=== PATIENT | female | born 1975 | race Caucasian/White ===

== ENCOUNTER 2017-01-02 15:16 | Inpatient (IN) | payer OTHER ==
[~2017-01-02] VITALS: Ht 152.4 cm; Wt 83.0 kg
[~2017-01-02 15:16] MED LIST: IBUP-103 PO; LEVO50TA6 PO; MULT-513 PO
[2017-01-02] MEDS ORDERED: MIDAZOLAM HCL 1 MG/ML 2ML VIAL ONE (15:19)
[2017-01-02] MEDS ORDERED: FENTANYL CITRATE INJ 50 MCG/1 ML 2 ML VIAL ONE (15:19)
[2017-01-02] MEDS ORDERED: LACTATED RINGER'S 1000ML 1,000 ML IV SCH ×2 (15:40→17:00)
[2017-01-02] MEDS ORDERED: CITRIC ACID/SODIUM CITRATE 15 ML UDC PO ONE (15:45)
[2017-01-02] MEDS ORDERED: CEFOXITIN IV 2,000 MG in DEXTROSE 5% 50ML 50 ML IV SCH (15:46)
[2017-01-02] MEDS ORDERED: CITRIC ACID/SODIUM CITRATE 15 ML UDC ONE ×2 (15:53→17:07)
--- NOTE | 2017-01-02 15:56 | History & Physical Bridge Note ---
H&P Re-Evaluation Bridge Note: I have examined the patient, reviewed the History & Physical and in the interval since the performance of the History & Physical I have noted the following changes of clinical significance: No changes noted Dictated H&P #[id number]
[2017-01-02] MEDS ORDERED: MISOPROSTOL 200 MCG TAB PV STA (16:13)
[2017-01-02 16:19] LABS: INR 0.9 (0.9-1.1); PROTHROMBIN TIME (PATIENT) 9.8 SECONDS (9.0-12.0)
--- NOTE | 2017-01-02 16:29 | HISTORY & PHYSICAL EXAMINATION ---
DATE OF ADMISSION: 01/02/2017 HISTORY OF PRESENT ILLNESS: The patient is a 41-year-old who presented to the [facility] today for the first time with positive test. Ultrasound done showed that the patient is 36 weeks and 1 day . Estimated weight is 2730 grams. It was also noted that the patient had complete placenta previa. The patient reported having severe vaginal bleeding yesterday as reported by patient. It was "enough to fill a bucket." Today in the office she has no vaginal bleeding. The patient is sent to labor and delivery for section. On arrival to labor and delivery, she has no shortness of breath, no chills, no fever. There is no vaginal bleeding. heart rate is documented as category I. COURSE: As stated above none. LABS: None. PAST MEDICAL HISTORY: The patient has history of asthma. PAST SURGICAL HISTORY: The patient has a history of appendectomy. [facility] HISTORY: The patient has had 2 vaginal deliveries at term without problems. ALLERGIES: THE PATIENT IS ALLERGIC TO PERCOCET. SOCIAL HISTORY: The patient is a smoker. Denies drug or alcohol use. PHYSICAL EXAMINATION: GENERAL: Well-developed, well-nourished white female in no acute distress. HEART: S1, S2, regular rhythm and rate. LUNGS: Clear to auscultation bilaterally. ABDOMEN: Gravid. Ultrasound shows intrauterine at 36 weeks and 1 day, transverse lie, complete placenta previa and polyhydramnios. EXTREMITIES: No cyanosis, clubbing or edema. PELVIC: Deferred. ASSESSMENT AND PLAN: A 41-year-old at 36 weeks and 1 day complete placenta previa, no care. The patient has experienced massive bleeding yesterday. Decision therefore is to perform a section. Consent is signed. We discussed risks of bleeding including possible hysterectomy because of the placenta previa. Consent is signed. We discussed other risks including damage to internal organs such as the bowel, the bladder, the ureter. We also discussed possible blood transfusion, and infection. The patient has agreed to all the above and consent signed.
[2017-01-02 16:33] LABS: HEMATOCRIT 33.3 % (37-47); MEAN CELL VOLUME 90.7 fL (80-100); MEAN CORPUSCULAR HEMOGLOBIN 31.6 pg (25-34); MEAN PLATELET VOLUME 10.4 fL (7.4-10.4); PLATELET COUNT 247 K/uL (130-400); RED BLOOD COUNT 3.67 M/uL (4.2-5.4)
[2017-01-02 16:35] LABS: ALT/SGPT 22 U/L (12-78); AST/SGOT 13 U/L (15-37); BLOOD UREA NITROGEN 5 mg/dl (7-18); BUN/CREATININE RATIO 9.9 (10-20); CARBON DIOXIDE 22 mmol/L (21-32); CHLORIDE 107 mmol/L (98-107); CREATININE 0.51 mg/dl (0.60-1.20); GLUCOSE 91 mg/dl (70-99); POTASSIUM 3.6 mmol/L (3.5-5.1); SODIUM 138 mmol/L (136-145)
[2017-01-02 16:37] LABS: MEAN CORPUSCULAR HGB CONC 34.8 g/dl (32-36)
[2017-01-02 16:38] LABS: ALB/GLOB RATIO 0.6 (0.9-2); ALKALINE PHOSPHATASE 141 U/L (45-117)
[2017-01-02 17:02] LABS: BENZODIAZEPINE, URINE NEG (NEG); COCAINE,URINE NEG (NEG); PHENCYCLIDINE, URINE NEG (NEG)
[2017-01-02] MEDS ORDERED: OXYTOCIN INJ 10 UNITS/ML VIAL ONE ×3 (17:16→18:20)
[2017-01-02] MEDS ORDERED: MoRPHine SULFATE PF 1 MG/ML 10 ML AMP/VIAL ONE (17:22)
[2017-01-02 17:26] LABS: HEPATITIS B AB NEG
[2017-01-02] MEDS ORDERED: PHENYLEPHRINE HCL INJ 10 MG/ML VIAL ONE (17:48)
[2017-01-02] MEDS ORDERED: KETAMINE HCL INJ 50 MG/ML 10 ML VIAL ONE (18:04)
[2017-01-02] MEDS ORDERED: OXYTOCIN INJ 10 UNITS/ML VIAL INJ ONE (18:21)
[2017-01-02] MEDS ORDERED: SODIUM CHLORIDE 0.9% 1000ML 1,000 ML IV PRN (18:32)
[2017-01-02] MEDS ORDERED: NALOXONE HCL INJ 0.08 MG in SYRINGE 1.8 ML IV PRN (18:32)
[2017-01-02] MEDS ORDERED: LACTATED RINGER'S 1000ML 500 ML IV PRN (18:32)
[2017-01-02] MEDS ORDERED: NALOXONE HCL INJ 1 MG in SODIUM CHLORIDE 0.9% 1000ML 1,000 ML IV PRN (18:32)
[2017-01-02] MEDS ORDERED: MoRPHine SULFATE PF 1 MG/ML 10 ML AMP/VIAL EPI PRN (18:45)
[2017-01-02] MEDS ORDERED: NALBUPHINE HCL INJ 10 MG/ML AMP IV PRN (18:45)
[2017-01-02] MEDS ORDERED: MoRPHine SULFATE 2 MG/ML CARP IV PRN (18:45)
[2017-01-02] MEDS ORDERED: NO NARCOTICS OR SEDATIVES SCH (18:45)
[2017-01-02] MEDS ORDERED: EpHEDrine SULFATE INJ 50 MG/ML AMP IV PRN (18:45)
[2017-01-02] MEDS ORDERED: DiphenhydrAMINE HCL 50 MG/ML VIAL IV PRN (18:45)
[2017-01-02] MEDS ORDERED: MEPERIDINE HCL 25 MG/ML CARP IV PRN (18:45)
[2017-01-02] MEDS ORDERED: NALOXONE HCL 0.4 MG/1 ML VIAL/CARP IV PRN (18:45)
[2017-01-02] MEDS ORDERED: ONDANSETRON INJ 2 MG/ML 2 ML VIAL ONE (18:58)
--- NOTE | 2017-01-02 19:14 | [facility] Operative Report ---
Operative Report Operative Date Jan 02, 2017. Pre-Operative Diagnosis Complete placenta previa with bleeding Post-Operative Diagnosis same Procedure(s) Performed section Surgeon Dr. Ellis Mimeograph Operator Surgeon(s) Dr. Yu Estimated Blood Loss 600ml Findings dictated Fluids 1300 Specimens A. Placenta - taken with L&D Staff Drains atkinson Anesthesia spinal Complication(s) None Disposition Recovery Room / PACU I attest to the content of the Intraoperative Record and any orders documented therein. Any exceptions are noted below.
[2017-01-02] MEDS ORDERED: HYDROCORTISONE ACETATE 25 MG SUPP PR PRN (19:15)
[2017-01-02] MEDS ORDERED: MAGNESIUM HYDROXIDE SUSP 30 ML UDC PO PRN (19:15)
[2017-01-02] MEDS ORDERED: SUPERCREAM 0.870 % 15GM JAR EXT PRN (19:15)
[2017-01-02] MEDS ORDERED: LANOLIN OINT EXT PRN ×2 (19:15)
[2017-01-02] MEDS ORDERED: SENNA 8.6 MG TAB PO PRN (19:15)
[2017-01-02] MEDS ORDERED: BENZOCAINE 20% AER SPR 82.5 GM CAN EXT PRN (19:15)
[2017-01-02] MEDS ORDERED: DiphenhydrAMINE HCL 50 MG/ML VIAL ONE (19:17)
--- NOTE | 2017-01-02 19:26 | Anesthesiology Progress Note ---
Anesthesia Post Op Note Date & Time Jan 02, 2017 at 19:25 Vital Signs Pain Intensity: 0 Vital Signs Past 12 Hours Date Time Temp Pulse Resp B/P Pulse Ox O2 Delivery O2 Flow Rate FiO2 01/02/17 19:15 79 16 140/74 100 Nasal Cannula 2 01/02/17 19:05 81 18 130/77 100 Nasal Cannula 2 01/02/17 18:57 36.6 93 16 122/71 100 Nasal Cannula 2 Notes Mental Status: alert / awake / arousable, participated in evaluation Pt Amnestic to Procedure: Yes Nausea / Vomiting: adequately controlled Pain: adequately controlled Airway Patency, RR, SpO2: stable & adequate BP & HR: stable & adequate Hydration State: stable & adequate Neuraxial Anesthesia: was administered, sensory block is resolving Anesthetic Complications: no major complications apparent
[2017-01-02 19:50] VITALS: BP 137/82; TEMP 37.5; O2SAT 99
[2017-01-02] MEDS: DOCUSATE SODIUM 100 MG CAP PO SCH ×2 (20:00→20:36)
[2017-01-02 20:20] VITALS: BP 122/78; PULSE 81; TEMP 37.1; O2SAT 96
[2017-01-02] MEDS: OXYTOCIN INJ 20 UNITS in LACTATED RINGER'S 1000ML 1,000 ML IV SCH (20:30)
[2017-01-02 20:50] VITALS: BP 120/76; PULSE 84; TEMP 37.1; O2SAT 96
[2017-01-02] MEDS: KETOROLAC TROMETHAMINE 30 MG/ML VIAL IV. PRN (21:04)
[2017-01-02] MEDS: ONDANSETRON INJ 2 MG/ML 2 ML VIAL IV PRN (21:04)
--- NOTE | 2017-01-02 21:07 | OPERATIVE REPORT ---
DATE OF OPERATION: 01/02/2017 INDICATION FOR SURGERY: This is a 41-year-old with no care who found out she was yesterday. She was seen in the office today and was found to be 36 weeks and 1 day gestation with complete placenta previa. She had reported severe bleeding 24 hours ago. Decision was therefore made to perform an urgent section. PREOPERATIVE DIAGNOSES: 1. Complete placenta previa with bleeding. 2. No care. POSTOPERATIVE DIAGNOSES: Same. PROCEDURE: section. SURGEON: Dr. Ellis. BROADCAST TRAFFIC COORDINATOR: Dr. Yu. ESTIMATED BLOOD LOSS: 600 mL. INTRAVENOUS FLUIDS: 1300 mL. URINE OUTPUT: 500 mL clear urine at the end of the procedure. SPECIMEN: Placenta. DRAINS: Pizarro catheter. ANESTHESIA: Spinal. COMPLICATIONS: None. DISPOSITION: Stable in recovery room. FINDINGS: Live male, weight is pending, Apgars 7 and 8. Infant was in breech presentation. Mid portion of the anterior uterus had 2 fibroids, measuring about 1 inch x 1 inch. The right ovary appeared grossly normal and there was a paratubal cyst on the right tube. The left ovary appeared grossly normal. Rest of the pelvic and abdominal exam is unremarkable. DESCRIPTION OF PROCEDURE: The patient was taken to the operating room where she was prepped and draped in normal sterile fashion after timeout was called. A Pfannenstiel incision was made and carried down to the fascia with a scalpel. Fascia was incised in the midline and extended laterally on both sides. The fascia was sharply dissected off the rectus abdominis muscle. Midline of the rectus abdominis muscle was identified and carefully . The peritoneum was identified and grabbed with 2 mosquito clamps and the abdomen entered sharply. Once inside the abdomen, the findings were as dictated above. An Hari retractor was placed in the abdomen for retraction. Transverse incision was made in the uterus and extended laterally on both sides. Infant was breech. The buttocks was delivered, followed by both legs, torso as well as both hands. Breech maneuvers were performed without difficulty. Infant was delivered and found to have a nuchal cord as well as a body cord. Cord was clamped and cut and handed over to the awaiting pediatric team. The placenta was manually removed without difficulty. Uterus was cleared of all clots and debris. The uterus was exteriorized. The uterus was closed in a locking fashion using 2-0 Vicryl. Uterus was closed in 2 layers. There was good hemostasis at end of the closure. The vesicouterine peritoneum was reapproximated with plain suture. Copious amount of irrigation was used to irrigate the abdomen at this point. Uterus was returned into the abdominal cavity. There was good hemostasis. Peritoneum was closed in a running fashion using plain suture. The fascia was closed in a running fashion using 0 Vicryl. More irrigation was used to irrigate the subQ space. The subQ space was reapproximated using plain suture and skin was closed with blaze. All instruments were removed from the abdomen including sponges, needles and retractors and accounted for x2. The patient is doing well and sent to recovery in stable condition. I attest to the content of the Intraoperative Record and any orders documented therein. Any exceptio ns are noted below.
[2017-01-02 21:50] VITALS: BP 112/64; PULSE 77; TEMP 37; O2SAT 96
[2017-01-02 22:50] VITALS: BP 114/70; PULSE 84; TEMP 37.1; O2SAT 97
[2017-01-02 23:50] VITALS: O2SAT 97
[2017-01-03] VITALS (14 sets, daily range): BP systolic 103–129; BP diastolic 68–82; PULSE 78–92; TEMP 36.8–37.1; O2SAT 94–99
[2017-01-03] MEDS ORDERED: LACTATED RINGER'S 1000ML 1,000 ML IV SCH (02:15)
[2017-01-03] MEDS: LORAZEPAM 1 MG TAB PO PRN ×2 (02:45→15:45)
[2017-01-03] MEDS: ONDANSETRON INJ 2 MG/ML 2 ML VIAL IV PRN ×4 (03:01→17:18)
[2017-01-03] MEDS: KETOROLAC TROMETHAMINE 30 MG/ML VIAL IV. PRN ×2 (03:02→09:05)
[2017-01-03] MEDS: OXYTOCIN INJ 20 UNITS in LACTATED RINGER'S 1000ML 1,000 ML IV SCH (04:58)
[2017-01-03 06:48] LABS: HEMATOCRIT 28.3 % (37-47); MEAN CELL VOLUME 91.9 fL (80-100); MEAN CORPUSCULAR HEMOGLOBIN 30.2 pg (25-34); MEAN CORPUSCULAR HGB CONC 32.9 g/dl (32-36); MEAN PLATELET VOLUME 10.3 fL (7.4-10.4); PLATELET COUNT 201 K/uL (130-400); RED BLOOD COUNT 3.08 M/uL (4.2-5.4); WHITE BLOOD COUNT 13.02 K/uL (4.8-10.8)
[2017-01-03 07:22] LABS: ALB/GLOB RATIO 0.5 (0.9-2); CALCIUM 8.1 mg/dl (8.5-10.1); CREATININE 0.68 mg/dl (0.60-1.20); POTASSIUM 3.8 mmol/L (3.5-5.1)
[2017-01-03 07:34] LABS: COMPLETE YES; LYMPH ABS # 1.03 K/uL (1.2-3.4); LYMPHOCYTE % 7.9 %; NEUTROPHILS % 87.7 %
[2017-01-03] MEDS ORDERED: INFLUENZA VIRUS QUAD VACCINE 0.5 ML SYR IM. ONE (08:00)
[2017-01-03] MEDS ORDERED: INFLUENZA ADMINISTRATION CHARGE ONE (08:00)
[2017-01-03] MEDS: PRENATAL VITAMIN TAB PO SCH (08:57)
[2017-01-03] MEDS: DOCUSATE SODIUM 100 MG CAP PO SCH ×2 (08:57→21:24)
[2017-01-03] MEDS: FERROUS SULFATE 325 MG TAB PO SCH (08:58)
--- NOTE | 2017-01-03 11:20 | Surgery Progress Note ---
Surgery Progress Note Date of Service Jan 03, 2017. Subjective Post OP Day: 1 + feeling well, + flatus, + pain controlled Objective Vital Signs: Date Time Temp Pulse Resp B/P Pulse Ox O2 Delivery O2 Flow Rate FiO2 01/03/17 09:50 18 97 01/03/17 08:50 18 98 01/03/17 07:50 16 95 01/03/17 06:50 16 98 01/03/17 06:50 37.1 78 16 103/68 98 Room Air 01/03/17 06:50 Room Air 01/03/17 05:50 14 94 01/03/17 04:50 16 96 01/03/17 03:50 16 94 01/03/17 02:50 36.8 84 16 129/82 98 Room Air 01/03/17 02:50 16 98 01/03/17 01:50 16 99 01/03/17 00:50 16 98 01/02/17 23:50 16 97 01/02/17 22:50 37.1 84 18 114/70 97 Room Air 01/02/17 22:50 18 97 01/02/17 22:50 Room Air 01/02/17 21:50 14 96 01/02/17 21:50 37.0 77 14 112/64 96 Room Air 01/02/17 20:50 37.1 84 18 120/76 96 Room Air 01/02/17 20:50 18 96 01/02/17 20:20 37.1 81 16 122/78 96 Room Air 01/02/17 19:50 16 99 01/02/17 19:50 37.5 16 137/82 99 Room Air 01/02/17 19:50 99 Room Air 01/02/17 19:50 Room Air 01/02/17 19:35 36.7 78 15 129/80 99 Nasal Cannula 2 01/02/17 19:25 85 21 128/85 100 Nasal Cannula 2 01/02/17 19:15 79 16 140/74 100 Nasal Cannula 2 01/02/17 19:05 81 18 130/77 100 Nasal Cannula 2 01/02/17 18:57 36.6 93 16 122/71 100 Nasal Cannula 2 Abdomen: non tender, non distended Incision(s): clean, dry, intact Extremities: non-tender, normal inspection, no pedal edema, no calf tenderness Laboratory Results: Results Past 24 Hours Test 01/02/17 15:50 01/02/17 15:58 01/02/17 16:20 01/03/17 05:55 Range/Units White Blood Count 11.10 13.02 4.8-10.8 K/uL Red Blood Count 3.67 3.08 4.2-5.4 M/uL Hemoglobin 11.6 9.3 12.0-16.0 g/dL Hematocrit 33.3 28.3 37-47 % Mean Corpuscular Volume 90.7 91.9 80-100 fL Mean Corpuscular Hemoglobin 31.6 30.2 25-34 pg Mean Corpuscular Hemoglobin Concent 34.8 32.9 32-36 g/dl RDW Standard Deviation 46.7 47.6 36.4-46.3 fL RDW Coefficient of Variation 14.1 14.3 11.5-14.5 % Platelet Count 247 201 130-400 K/uL Mean Platelet Volume 10.4 10.3 7.4-10.4 fL Prothrombin Time 9.8 9.0-12.0 SECONDS Prothromb Time International Ratio 0.9 0.9-1.1 Sodium Level 138 136-145 mmol/L Potassium Level 3.6 3.5-5.1 mmol/L Chloride Level 107 98-107 mmol/L Carbon Dioxide Level 22 21-32 mmol/L Anion Gap 9.0 3-11 mmol/L Blood Urea Nitrogen 5 7-18 mg/dl Creatinine 0.51 0.60-1.20 mg/dl Estimated GFR () 140.4 Estimated GFR (Non- 121.1 BUN/Creatinine Ratio 9.9 10-20 Random Glucose 91 70-99 mg/dl Calcium Level 9.0 8.5-10.1 mg/dl Total Bilirubin 0.4 0.2-1 mg/dl Direct Bilirubin < 0.1 0-0.2 mg/dl Aspartate Amino Transf (AST/SGOT) 13 15-37 U/L Alanine Aminotransferase (ALT/SGPT) 22 12-78 U/L Alkaline Phosphatase 141 45-117 U/L Total Protein 6.9 6.4-8.2 gm/dl Albumin 2.5 3.4-5.0 gm/dl Globulin 4.4 2.5-4.0 gm/dl Albumin/Globulin Ratio 0.6 0.9-2 Rapid Plasma Reagin NONREACTIVE NONREACT Hepatitis B Surface Antigen NEG NEG Hepatitis B Surface Antibody NEG Rubella IgG Antibody IMMUNE IMMUNE Urine Opiates Screen NEG NEG Urine Methadone, Qualitative NEG NEG Urine Barbiturates NEG NEG Urine Phencyclidine (PCP) Level NEG NEG Ur Amphetamine/Methamphetamine NEG NEG MDMA (Ecstasy) Screen NEG NEG Urine Benzodiazepines Screen NEG NEG Urine Cocaine Metabolite NEG NEG Urine Marijuana (THC) POS NEG Neutrophils % (Manual) 87.7 % Lymphocytes % (Manual) 7.9 % Monocytes % (Manual) 4.4 % Neutrophils # (Manual) 11.42 1.4-6.5 K/uL Total Absolute Neutrophils 11.42 1.4-6.5 K/uL Lymphocytes # (Manual) 1.03 1.2-3.4 K/uL Total Absolute Lymphocytes 1.03 1.2-3.4 K/uL Monocytes # (Manual) 0.57 0.11-0.59 K/uL Test 01/03/17 06:45 Range/Units Sodium Level 141 136-145 mmol/L Potassium Level 3.8 3.5-5.1 mmol/L Chloride Level 108 98-107 mmol/L Carbon Dioxide Level 26 21-32 mmol/L Anion Gap 7.0 3-11 mmol/L Blood Urea Nitrogen 5 7-18 mg/dl Creatinine 0.68 0.60-1.20 mg/dl Est Creatinine Clear Calc Drug Dose 106.1 ml/min Estimated GFR () 127.7 Estimated GFR (Non- 110.2 BUN/Creatinine Ratio 8.0 10-20 Random Glucose 83 70-99 mg/dl Calcium Level 8.1 8.5-10.1 mg/dl Total Bilirubin 0.4 0.2-1 mg/dl Aspartate Amino Transf (AST/SGOT) 12 15-37 U/L Alanine Aminotransferase (ALT/SGPT) 16 12-78 U/L Alkaline Phosphatase 112 45-117 U/L Total Protein 5.1 6.4-8.2 gm/dl Albumin 1.8 3.4-5.0 gm/dl Globulin 3.3 2.5-4.0 gm/dl Albumin/Globulin Ratio 0.5 0.9-2 Assessment & Plan POD#1 advance diet and activity regular diet
[2017-01-03] MEDS ORDERED: PROMETHAZINE HCL INJ 25 MG in SODIUM CHLORIDE 0.9% 50ML 50 ML IV PRN (11:30)
[2017-01-03] MEDS ORDERED: DC INTRASPINAL MORPHINE ONE (11:30)
[2017-01-03] MEDS ORDERED: DiphenhydrAMINE HCL 50 MG/ML VIAL IV PRN (11:30)
[2017-01-03] MEDS ORDERED: ZOLPIDEM TARTRATE 5 MG TAB PO PRN (11:30)
[2017-01-03] MEDS: OXYCODONE/ACETAMINOPHEN 5-325 TAB PO PRN ×3 (13:28→21:25)
[2017-01-03] MEDS: IBUPROFEN 600 MG TAB PO PRN ×3 (13:28→21:25)
[2017-01-03] MEDS ORDERED: BISACODYL 5 MG TABEC PO ONE (21:00)
[2017-01-04 00:30] VITALS: BP 119/79; PULSE 82; TEMP 36.7; O2SAT 97
[2017-01-04] MEDS: IBUPROFEN 600 MG TAB PO PRN ×2 (06:47→13:08)
[2017-01-04] MEDS: OXYCODONE/ACETAMINOPHEN 5-325 TAB PO PRN ×3 (06:48→13:08)
[2017-01-04 08:05] VITALS: BP 126/78; PULSE 85; TEMP 36.9
--- NOTE | 2017-01-04 08:26 | OB/GYN Progress Note ---
FEATURES REPORTER Progress Note Date of Service: Jan 04, 2017. Patient is seen and examined. She feels well, no complaints. Likes to be discharged today She is giving baby for adoption. Pain is under control with oral meds. Ambulating without dizziness Voiding without difficulty Tolerating regular diet with out N&V Flatus + BM neg Bleeding is minimal No fever/ chills/ CP/ SOB/ N&V/ Leg pain Date Time Temp Pulse Resp B/P Pulse Ox O2 Delivery O2 Flow Rate FiO2 01/04/17 00:30 36.7 82 16 119/79 97 Room Air 01/04/17 00:30 Room Air 01/03/17 20:50 36.8 92 18 119/75 96 Room Air 01/03/17 15:30 37.1 82 18 115/71 98 Room Air 01/03/17 15:30 98 Room Air 01/03/17 12:00 37.0 84 20 108/74 Room Air 01/03/17 11:30 20 97 01/03/17 09:50 18 97 01/03/17 08:50 18 98 Test 01/02/17 15:50 01/02/17 15:58 01/02/17 16:20 01/03/17 05:55 White Blood Count 11.10 H 13.02 H Red Blood Count 3.67 L 3.08 L Hemoglobin 11.6 L 9.3 L Hematocrit 33.3 L 28.3 L Mean Corpuscular Volume 90.7 91.9 Mean Corpuscular Hemoglobin 31.6 30.2 Mean Corpuscular Hemoglobin Concent 34.8 32.9 RDW Standard Deviation 46.7 H 47.6 H RDW Coefficient of Variation 14.1 14.3 Platelet Count 247 201 Mean Platelet Volume 10.4 10.3 Prothrombin Time 9.8 Prothrombin Time INR 0.9 Sodium Level 138 Potassium Level 3.6 Chloride Level 107 Carbon Dioxide Level 22 Anion Gap 9.0 Blood Urea Nitrogen 5 L Creatinine 0.51 L Estimated GFR () 140.4 Estimated GFR (Non- 121.1 BUN/Creatinine Ratio 9.9 L Random Glucose 91 Calcium Level 9.0 Total Bilirubin 0.4 Direct Bilirubin < 0.1 Aspartate Amino Transferase (AST) 13 L Alanine Aminotransferase (ALT) 22 Alkaline Phosphatase 141 H Total Protein 6.9 Albumin 2.5 L Globulin 4.4 H Albumin/Globulin Ratio 0.6 L Rapid Plasma Reagin NONREACTIVE Hepatitis B Surface Antigen NEG Hepatitis B Surface Antibody NEG Rubella IgG Antibody IMMUNE Urine Opiates Screen NEG Urine Methadone, Qualitative NEG Urine Barbiturates NEG Urine Phencyclidine (PCP) Level NEG Ur Amphetamine/Methamphetamine NEG MDMA (Ecstasy) Screen NEG Urine Benzodiazepines Screen NEG Urine Cocaine Metabolite NEG Urine Marijuana (THC) POS H Urine Marijuana (THC Carboxy Acid) Pending Neutrophils % (Manual) 87.7 Lymphocytes % (Manual) 7.9 Monocytes % (Manual) 4.4 Neutrophils # (Manual) 11.42 H Total Absolute Neutrophils 11.42 H Lymphocytes # (Manual) 1.03 L Total Absolute Lymphocytes 1.03 L Monocytes # (Manual) 0.57 Test 01/03/17 06:45 01/04/17 06:10 Sodium Level 141 Potassium Level 3.8 Chloride Level 108 H Carbon Dioxide Level 26 Anion Gap 7.0 Blood Urea Nitrogen 5 L Creatinine 0.68 Est Creatinine Clear Calc Drug Dose 106.1 Estimated GFR () 127.7 Estimated GFR (Non- 110.2 BUN/Creatinine Ratio 8.0 L Random Glucose 83 Calcium Level 8.1 L Total Bilirubin 0.4 Aspartate Amino Transferase (AST) 12 L Alanine Aminotransferase (ALT) 16 Alkaline Phosphatase 112 Total Protein 5.1 #L Albumin 1.8 L Globulin 3.3 Albumin/Globulin Ratio 0.5 L Hemoglobin 9.5 L Hematocrit 28.0 L PE: General: Alert, orientedx3, NAD CVS: S1S2 RRR Lungs; CTAB Abd: soft, NT, fundus firm, below Umbilicus Incision: Clean, dry, intact, [place] intact Perineum intact, Lochia rubra minimal Ext; NT, no edema AP: 41 yo s/p C Section, pod# 2 VSS Afebrile doing well Continue routine postop care Encourage ambulation, PO intake All questions were answered D/C home this afternoon f/u in office next week Instructions were given when to call
[2017-01-04] MEDS: PRENATAL VITAMIN TAB PO SCH (08:27)
[2017-01-04] MEDS ORDERED: OXYC-57 PO (08:28)
[2017-01-04] MEDS ORDERED: CLC100 PO (08:28)
[2017-01-04] MEDS ORDERED: MTR600X PO (08:28)
[2017-01-04] MEDS ORDERED: FRRS300 PO (08:28)
[2017-01-04] MEDS: DOCUSATE SODIUM 100 MG CAP PO SCH (08:29)
[2017-01-04] MEDS: FERROUS SULFATE 325 MG TAB PO SCH (08:29)
--- NOTE | 2017-01-04 08:29 | Discharge Instructions ---
Discharge Instructions Date of Service Jan 04, 2017. Admission Reason for Admission: Section Discharge Discharge Diagnosis / Problem: Primary Ceserean section, placenta previa Discharge Goals Goal(s): Routine recovery after Medications Continue Dispensed Medications: lansinoh Activity Recommendations Activity Limitations: as noted below Lifting Limitations: no more than 10 pounds Exercise/Sports Limitations: until after follow-up appointment May Resume Sexual Activity: after follow-up appointment Shower/Bathe: keep incision dry Driving or Machine Use: ACTIVITY RECOMMENDATIONS: * Gradual return to full activity over the next 2-3 weeks. * No lifting - nothing heavier than baby over the next 2-3 weeks. * Do not engage in vigorous exercise, sexual activity or sports until cleared by your physician. * Do not drive or operate any motorized equipment until cleared by your physician. * You may shower/bathe daily. BREAST CARE: If you are not breast feeding: * Wear a supportive bra 24 hours a day for one to two weeks. * Avoid stimulating your breasts and nipples as much as possible during the first few weeks after delivery. * When taking a shower, have the warm water hit your back, not breasts. * When your breasts feel full, apply ice packs. Usually three to four times a day helps ease the discomfort. * Take a mild pain medication (Tylenol/Motrin) when you are uncomfortable. If breast feeding: * Use breast milk to lubricate nipples. Lansinoh cream may be used for sore nipples. You do not need to remove cream prior to breast feeding. If using a different brand of cream, check the label for directions regarding removal of cream prior to nursing. * Wear a supportive bra. * If having problems with breasts or breast feeding, call a leasing sales consultant or your health care provider. OVER THE COUNTER MEDICATION: * For discomfort or pain, you may use Acetaminophen (Tylenol), Ibuprofen (Advil ), or Naproxen (Aleve) following the package directions. * For constipation you may use Colace following the package directions. SPECIAL CARE INSTRUCTIONS: When you are discharged from the hospital, it is important for you to follow the instructions listed below: * During the first week at home, you should be able to care for yourself and your baby. In addition, the usual light household activities are encouraged. * Limit your activities to the way you feel. Do not try to clean the house or move furniture. Be sensible. * If you actively engage in sports and have done so up until the time of your delivery, you may resume these activities as soon as you feel able. This may take up to one month or even longer. Use good judgment. * Continue to take your vitamins for at least six weeks after the of your baby. * Your diet need not be limited unless you were on a special diet before your delivery. Breast-feeding mothers need around 2500 calories per day and at least 64-80 ounces of fluid per day (8 to 10 glasses). * You should eat foods from the four major food groups. Crash diets or fad diets are to be avoided. Eating lean meats, fresh fruits and vegetables, low-fat dairy products, high fiber foods and a regular exercise program, will help you get back to your pre- weight without putting your health at risk. * Constipation is sometimes a problem after delivery. Take a mild laxative as needed. If breast feeding, Milk of Magnesia is acceptable to use. You may use a suppository or Fleets enema if no episiotomy. * A daily shower or tub bath is suggested. Be sure to thoroughly and gently dry the perineum. * A bloody vaginal discharge will usually continue until around four weeks post . A small amount of bleeding may continue for as long as six weeks. Vaginal discharge changes from the bright red bleeding after delivery to pink then brownish and finally yellowish-pink before becoming white and disappearing. * Bleeding may increase with activity. Your first period may come in 4-8 weeks. If you are breast feeding, your period may be delayed even longer. * Mcrae (sex) can begin whenever both you and your partner feel comfortable and do not have any form of genital infection. It is recommended that you wait at least six weeks for internal and external healing to occur. If you have questions, please talk to your health care practitioner. A condom should be used to prevent infection and . * Foreplay, gentle intercourse and lubrication is very important the first several times to prevent pain. A water-based lubricant such as K-Y jelly or Astroglide may be used. * Tampons and/or Douching should be avoided until after six weeks check-up. * If you have RH negative blood and your baby is RH positive, you will receive RHOGAM by injection prior to discharge. The nurse will give you a card to keep with you that has the date and place that you received RHOGAM after delivery. * During your care, you had a Rubella screen done to check for the presence of rubella antibodies in your blood. If your test was negative, you will receive a Rubella vaccine prior to discharge. This vaccine may cause a fever, soreness at the injection site and flu-like symptoms. If these symptoms persist, notify your health care practitioner. is not advised for three months after a Rubella vaccine. * Verbalizes understanding of car seat law as reviewed with patient nursing. * Car Seat hand-out given and reviewed with patient by nursing. * Shaken baby information reviewed with patient by nursing. Call you doctor if: * Heavy bleeding (saturating several pads an hour) or passing clots the size of your fist. * A fever >101 degrees F (38.3 degrees C) on two occasions four hours apart and /or chills. * Unusual pain in the pelvic or vaginal areas. Pain should improve each day . * Call the doctor for any increased redness, drainage or swelling around the incision and any pain unrelieved by prescribed pain medication. * Any signs or symptoms of phlebitis (possible blood clots forming in the veins ): leg pain, warm, red or swollen area on leg. * "Baby Blues" lasting longer than two weeks. If you have any questions or concerns, call your health care practitioner at . FOLLOW-UP VISIT: * Incision check (staple removal) in 1 week. Please call doctor's office at to set up appointment. * Please call the office at to schedule a 6 week examination. It is important you keep this appointment. * It is important for you to make arrangements for either yearly or twice yearly check-ups thereafter. . Current Hospital Diet Patient's current hospital diet: Regular OB Diet Discharge Diet Recommended Diet: Regular Diet Procedures Procedures Performed: Caesarean Section delivery of viable male baby Pending Studies Studies pending at discharge: no Medical Emergencies . Who to Call and When: Medical Emergencies: If at any time you feel your situation is an emergency, please call 911 immediately. . Non-Emergent Contact Non-Emergency issues call your: Primary Care Provider, Vegetable Harvest Machine Operator, Surgeon Call Non-Emergent contact if: temperature is above 100.5, your pain is not controlled, your pain is worsening, wound has increased drainage, wound has increased redness, wound has increased pain . . "Provider Documentation" section prepared by Ira Cm. . VTE Core Measure Inpt VTE Proph given/why not?: Treatment not indicated
[2017-01-04] MEDS ORDERED: LORA-741 PO (13:03)
[2017-01-04 14:59] VITALS: BP_DIAS 78; PULSE 85; TEMP 36.9
[2017-01-04] MEDS ORDERED: BISACODYL 10 MG SUPP PR PRN (19:15)
--- NOTE | 2017-01-15 02:28 | DISCHARGE SUMMARY ---
CHIEF COMPLAINT: 1. with no care. 2. Placenta previa with bleeding. HISTORY OF PRESENT ILLNESS: This is a 41-year-old G6, P2, who presented [facility] today for the first time with positive tests. Ultrasound done showed that she was 36 weeks and 1 day . Estimated weight on ultrasound was 2730 grams. It was noted that the patient also had a complete placenta previa. The patient reported having had severe vaginal bleeding the day before and described the bleeding as "enough to fill a bucket". The decision was, therefore, made to send the patient to labor and delivery and have a section done immediately. The patient arrived in labor and delivery at [facility], where she underwent section and delivered a live male, Apgars 7 and 8. Fetus was in breech presentation. Other details of the pediatric and surgical information are in the respective records. The patient did well. She did not require any blood transfusion or any additional surgery. On postop day #1, which was 01/03/2017, the patient continued to improve, she was able to ambulate, tolerate p.o. food and meds. Pizarro catheter was removed. On postop day #2, which was 01/05/2016, patient continued to improve and decided to go home that day. She was discharged home in stable condition. PAST MEDICAL HISTORY: Asthma. PAST SURGICAL HISTORY: The patient has history of appendectomy. SOCIAL HISTORY: The patient was a smoker. Denied drug or alcohol use. OBSTETRICAL AND GYNECOLOGICAL HISTORY: The patient had 2 vaginal deliveries at term without complications. ALLERGIES: The patient was allergic to Percocet. REVIEW OF SYSTEMS: Negative, except as dictated in the HPI. PHYSICAL EXAMINATION: GENERAL: A well-developed, well-nourished white female, in no acute distress. VITALS: On 01/04/2017 showed a temperature of 36.9, pulse of 85, blood pressure 126/78. Labs on 01/04/2017 showed hemoglobin of 9.5, hematocrit of 28.0, platelets of 201,000. HEART: S1, S2, regular rhythm and rate. LUNGS: Clear to auscultation bilaterally. ABDOMEN: Nontender, nondistended, positive bowel sounds. Incision was clean, dry and intact. EXTREMITIES: No cyanosis, clubbing or edema. Lochia at time of discharge was minimal. OPERATION: Primary section for complete placenta previa in breech presentation. DISCHARGE DIAGNOSIS: Postop after section. PLAN ON DISCHARGE: The patient is discharged home with instructions regarding activity, followup appointment, diet and medications.
== END 2017-01-04 14:40 | disposition home or self-care (01) | DRG 765 ==
LOC: C.LD 15:24 → EEVIPCON 15:24 → C.MS4N 20:09
PROVIDERS: ADMIT Obstetrics & Gynecology; ATTEND Obstetrics & Gynecology
PROC: 10D00Z1 Extraction of Products of Conception, Low, Open Approach (ICD-10-PCS; principal; 2017-01-02 10:15)
PROC: 4A1HXCZ Monitoring of Products of Conception, Cardiac Rate, External Approach (ICD-10-PCS; principal; 2017-01-02 10:15)
DX: O44.03 Complete placenta previa NOS or without hemorrhage, third trimester (principal); O60.14X0 Preterm labor third trimester with preterm delivery third trimester, not applicable or unspecified; Z37.0 Single live birth; O09.523 Supervision of elderly multigravida, third trimester; J45.909 Unspecified asthma, uncomplicated; Z90.49 Acquired absence of other specified parts of digestive tract; Z88.5 Allergy status to narcotic agent; O99.52 Diseases of the respiratory system complicating childbirth; Z3A.36 36 weeks gestation of pregnancy; O99.334 Smoking (tobacco) complicating childbirth; F17.210 Nicotine dependence, cigarettes, uncomplicated; O32.1XX0 Maternal care for breech presentation, not applicable or unspecified; O34.13 Maternal care for benign tumor of corpus uteri, third trimester; O69.81X0 Labor and delivery complicated by cord around neck, without compression, not applicable or unspecified

== ENCOUNTER 2021-04-09 15:33 | Inpatient (IN) ==
[2021-04-09] MEDS ORDERED: ALBUT/IPRATROP 3MG/0.5MG NEB 3 ML VIAL NEB STA (15:39)
[2021-04-09] MEDS ORDERED: methylPREDNISolone 125 MG/2 ML VIAL IV STA (15:39)
[2021-04-09] MEDS ORDERED: ONDANSETRON INJ 2 MG/ML 2 ML VIAL IV STA (15:44)
[2021-04-09] MEDS ORDERED: SODIUM CHLORIDE 0.9% 1000ML 1,000 ML IV SCH (15:45)
[2021-04-09] MEDS: MAGNESIUM SULFATE 1GM / D5W BAG IV STA ×2 (16:00→16:01)
--- NOTE | 2021-04-09 16:00 | Emergency Department Note ---
History of Present Illness General Chief Complaint: Asthma Stated Complaint: ASTHMA ATTACK - SOB - HARD TO TALK Time Seen by Provider: 04/09/21 15:38 Source: patient Mode of arrival: wheelchair Limitations: no limitations History of Present Illness Provider complaint: "asthma attack", shortness of breath and wheezing Onset (ago): day(s) 3 Severity: moderate and worse than usual Context: other (Patient believes it may be exacerbated by humidity.) Associated symptoms: chest pain Asthma History: childhood onset Treatments Prior to Arrival: inhaled bronchodilator Related Data Current Asthma Therapy: inhaled bronchodilator Home Medications Medication Instructions Recorded Confirmed Type No Known Home Medications 04/09/21 04/09/21 History Allergies Allergy/AdvReac Type Severity Reaction Status Date / Time hydrocodone AdvReac Intermediate GI SYMPTOMS Verified 04/09/21 16:17 oxycodone AdvReac Mild VOMITING Verified 04/09/21 16:17 tramadol AdvReac Mild VOMITING Verified 04/09/21 16:17 Past Med/Surg History Medical History Anxiety Asthma Chronic pancreatitis Hypothyroidism Migraine headache Placenta previa Surgical History No pertinent past surgical history Family History Father Heart disease Social History Smoking Status: Former smoker Cigarettes Per Day: 3; Smoking End Date: 04/08/21; Second Hand Exposure: No; Do You Dip or Chew Tobacco: No; Tobacco Cessation Education Requested by Patient: No Hx Alcohol Use: No Hx Substance Use: No Preferred Language: Congolese Communication Ability: Effective Online Communications Specialist Required: No Beliefs That Will Affect Care: None Current Living Situation: Significant Other Other Information That Helps Us Care for You: No Feels Safe at Home: Yes Safety Concerns: Feels Safe At This Time Assistive Devices: None Review of Systems See HPI for pertinent positives & negatives. and A total of 10 systems reviewed and were otherwise negative Physical Exam Vital Signs Vital Signs - 24 hr 04/09/21 17:00 04/09/21 17:30 04/09/21 18:00 Pulse Rate 101 H 107 H 115 H Pulse Rate [Finger] Pulse Rate from SpO2 Sensor 101 H 106 H 116 H Respiratory Rate 19 14 24 Respiratory Effort / Characteristics Blood Pressure 192/104 H 183/143 H Blood Pressure [Right Arm] Blood Pressure Mean 133 156 Blood Pressure Mean [Right Arm] Pulse Oximetry 99 98 97 Oxygen Delivery Method Oxygen Flow Rate 04/09/21 18:15 04/09/21 18:30 04/09/21 19:26 Pulse Rate 117 H Pulse Rate [Finger] 110 H 138 H Pulse Rate from SpO2 Sensor 120 H Respiratory Rate 24 19 26 H Respiratory Effort / Characteristics Spontaneous Labored Short of Breath Blood Pressure 196/115 H Blood Pressure [Right Arm] 169/114 H Blood Pressure Mean 142 Blood Pressure Mean [Right Arm] 132 Pulse Oximetry 95 99 95 Oxygen Delivery Method Other Nebulizer Oxygen Flow Rate 3 04/09/21 19:34 04/09/21 19:36 04/09/21 19:42 Pulse Rate Pulse Rate [Finger] 131 H 130 H 132 H Pulse Rate from SpO2 Sensor Respiratory Rate 18 18 18 Respiratory Effort / Characteristics Blood Pressure Blood Pressure [Right Arm] 159/113 H 170/108 H 168/109 H Blood Pressure Mean Blood Pressure Mean [Right Arm] 128 128 128 Pulse Oximetry 96 97 93 Oxygen Delivery Method Nebulizer Room Air Nasal Cannula Oxygen Flow Rate 2 04/09/21 19:46 04/09/21 19:50 Pulse Rate Pulse Rate [Finger] 129 H 129 H Pulse Rate from SpO2 Sensor Respiratory Rate 18 22 Respiratory Effort / Characteristics Blood Pressure Blood Pressure [Right Arm] 156/113 H 140/107 H Blood Pressure Mean Blood Pressure Mean [Right Arm] 127 118 Pulse Oximetry 92 91 Oxygen Delivery Method Nasal Cannula Nasal Cannula Oxygen Flow Rate 3 3 GENERAL: Mild distress, mild tachypnea EYE EXAM: Normal conjunctiva. PERRL, no anisocoria and EOM's grossly intact w/o pain. OROPHARYNX: Dry mucus membranes. Grossly normal dentition. NECK: Supple, no nuchal rigidity, no adenopathy, non-tender. No signs of meningismus. Not stridulous. LUNGS: Mild tachypnea, mild inspiratory and expiratory wheezing. HEART: NSR, no MRG. ABDOMEN: Abdomen soft, non-tender, normo-active bowel sounds, no masses, no rebound or guarding. BACK: No CVA TTP. SKIN: No rashes and no bruising. UPPER EXTREMITIES: Upper extremities are grossly normal. LOWER EXTREMITIES: Grossly normal, no edema. Negative Homans' sign bilaterally NEURO EXAM: A&O x3, cranial nerves II-XII grossly intact, normal speech, moves all 4 extremities on command w/o issue. Course Course Cardiac monitoring: An order was placed for continuous cardiac monitoring. The monitor shows a rate of 112 with sinus tachycardia rhythm. Administered Medications Aspirin (Aspirin 81 Mg Ectab) 81 mg PO QAM [facility] Stop: 05/10/21 08:59 Last Admin: 04/10/21 08:25 Dose: 81 mg Documented by: [id number] Atorvastatin Calcium (Atorvastatin 40 Mg Tab) [facility] Stop: 05/10/21 08:59 Last Admin: 04/10/21 08:26 Dose: 80 mg Documented by: [id number] Hydrocodone Bit/Homatropine Methylb (Hydrocodone/Homatropine Syrup 5mg/1.5mg 5ml Udp) 5 ml PO Q8H PRN PRN Reason: Cough Stop: 04/23/21 18:23 Last Admin: 04/09/21 22:32 Dose: 5 ml Documented by: [id number] Insulin Aspart (Insulin Aspart 100 Units/Ml 3 Ml Pen) 0 units SC ACHS [facility] Stop: 05/09/21 21:44 Last Admin: 04/10/21 13:47 Dose: 1 units Documented by: [id number] Cosigned by: [id number] Admin: 04/10/21 12:01 Dose: 2 units Documented by: [id number] Cosigned by: [id number] Admin: 04/10/21 07:35 Dose: 2 units Documented by: [id number] Cosigned by: [id number] Admin: 04/09/21 22:14 Dose: 6 units Documented by: [id number] Cosigned by: [id number] Lisinopril (Lisinopril 5 Mg Tab) [facility] Stop: 05/10/21 08:59 Last Admin: 04/10/21 08:25 Dose: 5 mg Documented by: [id number] Spironolactone (Spironolactone 25 Mg Tab) 25 mg PO QAM [facility] Stop: 05/10/21 12:14 Last Admin: 04/10/21 12:40 Dose: 25 mg Documented by: [id number] Ticagrelor (Ticagrelor 90 Mg Tab) 90 mg PO BID [facility] Stop: 05/10/21 08:59 Last Admin: 04/10/21 08:26 Dose: 90 mg Documented by: [id number] Discontinued Medications Acetaminophen (Acetaminophen 325 Mg Tab) 650 mg PO Q4H PRN PRN Reason: MILD Pain (Scale 1,2,3) Stop: 05/09/21 21:04 Last Admin: 04/10/21 07:21 Dose: 650 mg Documented by: [id number] Albuterol (Albut/Ipratrop 3mg/0.5mg Neb 3 Ml Vial) 12 ml NEB ONE [facility] Stop: 04/09/21 15:40 Last Admin: 04/09/21 15:44 Dose: 12 ml Documented by: [id number] Albuterol (Albut/Ipratrop 3mg/0.5mg Neb 3 Ml Vial) 12 ml NEB ONE ONE Stop: 04/09/21 17:59 Last Admin: 04/09/21 18:14 Dose: 12 ml Documented by: [id number] Albuterol (Albut/Ipratrop 3mg/0.5mg Neb 3 Ml Vial) 3 ml NEB QIDR [facility] Stop: 05/09/21 21:44 Last Admin: 04/10/21 07:07 Dose: 3 ml Documented by: [id number] Admin: 04/09/21 22:55 Dose: Not Given Documented by: [id number] Fentanyl Citrate (Fentanyl Citrate 100 Mcg/2 Ml Vial) Confirm Administered Dose 100 mcg .ROUTE .STK-MED ONE Stop: 04/09/21 19:42 Last Admin: 04/09/21 21:58 Dose: Not Given Documented by: [id number] Fentanyl Citrate (Fentanyl Citrate 100 Mcg/2 Ml Vial) Confirm Administered Dose 100 mcg .ROUTE .STK-MED ONE Stop: 04/09/21 20:08 Last Admin: 04/09/21 22:00 Dose: Not Given Documented by: [id number] Furosemide (Furosemide 40 Mg/4 Ml Vial) Confirm Administered Dose 40 mg IV .STK- MED ONE Stop: 04/09/21 20:18 Last Admin: 04/09/21 22:01 Dose: Not Given Documented by: [id number] Heparin Sodium (Porcine) (Heparin (Porcine) 1000 Unit/Ml 10 Ml (Lock Stitch Channeler Use Only)) Confirm Administered Dose 10,000 units .ROUTE .STK-MED ONE Stop: 04/09/21 19:42 Last Admin: 04/09/21 21:58 Dose: Not Given Documented by: [id number] Heparin Sodium (Porcine) (Heparin (Porcine) 1000 Unit/Ml 10 Ml (Lock Stitch Channeler Use Only)) Confirm Administered Dose 10,000 units .ROUTE .STK-MED ONE Stop: 04/09/21 20:35 Last Admin: 04/09/21 22:02 Dose: Not Given Documented by: [id number] Heparin Sodium/Sodium Chloride (Heparin In Nss Infusion 1000 Unit/500 Ml (2 U/Ml) Bag) Confirm Administered Dose 3,000 units IV .STK-MED ONE Stop: 04/09/21 19:42 Last Admin: 04/09/21 21:59 Dose: Not Given Documented by: [id number] Sodium Chloride (Nss 1000ml) 1,000 mls @ 999 mls/hr IV .Q1H1M [place] Stop: 04/09/21 16:45 Last Infusion: 04/09/21 17:35 Dose: 0 mls/hr Documented by: [id number] Admin: 04/09/21 16:00 Dose: 999 mls/hr Documented by: [id number] Sodium Chloride (Nss 1000ml) 1,000 mls @ 999 mls/hr IV .Q1H1M ONE Stop: 04/09/21 18:29 Last Infusion: 04/09/21 19:08 Dose: 0 mls/hr Documented by: [id number] Admin: 04/09/21 17:35 Dose: 999 mls/hr Documented by: [id number] Azithromycin 500 mg/ Dextrose 255 mls @ 125 mls/hr IV Q24H [place] Stop: 04/16/21 21:59 Last Infusion: 04/10/21 00:20 Dose: 0 mls/hr Documented by: [id number] Admin: 04/09/21 22:17 Dose: 125 mls/hr Documented by: [id number] Lorazepam (Ativan) 1 mg in 2 mls @ 2 mls/min IV NOW STA Stop: 04/09/21 18:56 Last Admin: 04/09/21 19:06 Dose: 2 mls/min Documented by: [id number] Sodium Phosphate 15 mmol/ (Sodium Chloride) 255 mls @ 100 mls/hr IV 0715 ONE Stop: 04/10/21 09:47 Last Infusion: 04/10/21 09:58 Dose: 0 mls/hr Documented by: [id number] Admin: 04/10/21 07:25 Dose: 100 mls/hr Documented by: [id number] Insulin Human NPH (Novolin-N (Nph) Per Unit Charge) 5 units SQ NOW ONE Stop: 04/10/21 10:16 Last Admin: 04/10/21 10:45 Dose: 5 units Documented by: [id number] Cosigned by: [id number] Ioversol (Optiray 320 125ml) 120 ml IV ONCE ONE Stop: 04/09/21 17:53 Last Admin: 04/09/21 17:52 Dose: 120 ml Documented by: [id number] Ketorolac Tromethamine (Ketorolac 30 Mg/Ml Vial) 30 mg IV NOW STA Stop: 04/09/21 17:43 Last Admin: 04/09/21 17:49 Dose: 30 mg Documented by: [id number] Lorazepam (Lorazepam 0.5 Mg Tab) 0.5 mg PO NOW STA Stop: 04/10/21 09:43 Last Admin: 04/10/21 09:58 Dose: 0.5 mg Documented by: [id number] Magnesium Sulfate/Dextrose (Magnesium Sulfate 1gm / D5w Bag) 2 gm IV NOW STA Stop: 04/09/21 15:40 Last Admin: 04/09/21 16:00 Dose: 1 gm Documented by: [id number] Magnesium Sulfate/Dextrose (Magnesium Sulfate 1gm / D5w Bag) Confirm Administered Dose 1 gm IV .STK-MED ONE Stop: 04/09/21 18:03 Last Admin: 04/09/21 18:05 Dose: 1 gm Documented by: [id number] Methylprednisolone (Methylprednisolone 125 Mg/2 Ml Vial) 125 mg IV NOW STA Stop: 04/09/21 15:40 Last Admin: 04/09/21 16:00 Dose: 125 mg Documented by: [id number] Methylprednisolone (Methylprednisolone 40 Mg/Ml Vial) 40 mg IV NOW STA Stop: 04/09/21 17:59 Last Admin: 04/09/21 18:04 Dose: 40 mg Documented by: [id number] Metoprolol Tartrate (Metoprolol Tartrate 1 Mg/Ml Vial) Confirm Administered Dose 5 mg IV .STK-MED ONE Stop: 04/09/21 20:21 Last Admin: 04/09/21 22:01 Dose: Not Given Documented by: [id number] Metoprolol Tartrate (Metoprolol Tartrate 25 Mg Tab) 25 mg PO BID [place] Stop: 05/10/21 08:59 Last Admin: 04/10/21 08:25 Dose: 25 mg Documented by: [id number] Metoprolol Tartrate (Metoprolol Tartrate 25 Mg Tab) 25 mg PO ONE ONE Stop: 04/10/21 15:46 Last Admin: 04/10/21 15:30 Dose: 25 mg Documented by: [id number] Midazolam HCl (Midazolam Hcl 1 Mg/Ml 2ml Vial) Confirm Administered Dose 2 mg .ROUTE .[facility] ONE Stop: 04/09/21 19:42 Last Admin: 04/09/21 21:59 Dose: Not Given Documented by: [id number] Midazolam HCl (Midazolam Hcl 1 Mg/Ml 2ml Vial) Confirm Administered Dose 2 mg .[facility]TE [facility] Stop: 04/09/21 20:08 Last Admin: 04/09/21 22:00 Dose: Not Given Documented by: [id number] Midazolam HCl (Midazolam Hcl 1 Mg/Ml 2ml Vial) Confirm Administered Dose 2 mg .ROUTE .[facility] ONE Stop: 04/09/21 20:23 Last Admin: 04/09/21 22:01 Dose: Not Given Documented by: [id number] Nicardipine HCl (Nicardipine Hcl Inj 2.5 Mg/Ml 10 Ml Amp) Confirm Administered Dose 25 mg .[facility]TE [facility] Stop: 04/09/21 19:42 Last Admin: 04/09/21 21:59 Dose: Not Given Documented by: [id number] Nitroglycerin/Dextrose (Nitroglycerin/D5w 100mcg/Ml 20ml Syr) Confirm Adminis tered Dose 2,000 mcg .ROUTE .[facility] ONE Stop: 04/09/21 19:43 Last Admin: 04/09/21 22:00 Dose: Not Given Documented by: [id number] Ondansetron HCl (Ondansetron Inj 2 Mg/Ml 2 Ml Vial) 4 mg IV NOW STA Stop: 04/09/21 15:45 Last Admin: 04/09/21 16:00 Dose: 4 mg Documented by: [id number] Ondansetron HCl (Ondansetron Inj 2 Mg/Ml 2 Ml Vial) Confirm Administered Dose 4 mg .ROUTE .STK-MED ONE Stop: 04/09/21 19:58 Last Admin: 04/09/21 22:00 Dose: Not Given Documented by: [id number] Ondansetron HCl (Ondansetron Inj 2 Mg/Ml 2 Ml Vial) Confirm Administered Dose 4 mg .ROUTE .STK-MED ONE Stop: 04/09/21 20:31 Last Admin: 04/09/21 22:02 Dose: Not Given Documented by: [id number] Potassium Chloride (Potassium Chloride Crtab 20 Meq Tabcr) 40 meq PO ONE ONE Stop: 04/09/21 18:23 Last Admin: 04/09/21 19:14 Dose: 40 meq Documented by: [id number] Ticagrelor (Ticagrelor 90 Mg Tab) Confirm Administered Dose 180 mg PO .STK-MED ONE Stop: 04/09/21 20:58 Last Admin: 04/09/21 21:11 Dose: 180 mg Documented by: [id number] Medical Decision Making Differential Diagnosis Reactive airway disease, pneumonia, pneumothorax, COPD, CHF, infections, cardiac ischemia, pulmonary embolism, musculoskeletal, gastrointestinal, as well as other pathologies. Medical Records Attestation: I reviewed the patient's medical records. Home Medications Current Medication List: was personally reviewed by me Laboratory Data Attestation: I reviewed the patient's lab results. Result diagrams: 04/10/21 03:16 04/10/21 03:11 Lab Results 04/09/21 04/09/21 04/09/21 Range/Units 15:50 15:50 15:50 WBC 15.47 H (4.8-10.8) K/uL RBC 4.63 (4.2-5.4) M/uL Hgb 14.7 (12.0-16.0) g/dL Hct 42.2 (37-47) % MCV 91.1 (80-100) fL MCH 31.7 (25-34) pg MCHC 34.8 (32-36) g/dL RDW Std Deviation 42.6 (36.4-46.3) fL RDW Coeff of Maria Guadalupe 12.8 (11.5-14.5) % Plt Count 363 (130-400) K/uL MPV 10.5 H (7.4-10.4) fL Immature Gran % (Auto) 0.3 % Neut % (Auto) 75.6 % Lymph % (Auto) 18.7 % [place] % (Auto) 4.5 % Eos % (Auto) 0.6 % Baso % (Auto) 0.3 % Neut # (Auto) 11.69 H (1.4-6.5) K/uL Lymph # (Auto) 2.90 (1.2-3.4) K/uL [place] # (Auto) 0.70 H (0.11-0.59) K/uL Eos # (Auto) 0.10 (0-0.5) K/uL Baso # (Auto) 0.04 (0-0.2) K/uL Immature Gran # (Auto) 0.04 H (0.00-0.02) K/uL Sodium 138 (136-145) mmol/L Potassium 3.3 L (3.5-5.1) mmol/L Chloride 106 (98-107) mmol/L Carbon Dioxide 18 L (21-32) mmol/L Anion Gap 14.0 H (3-11) BUN 12 (7-18) mg/dl Creatinine 1.15 (0.6-1.2) mg/dl Est Cr Clr Drug Dosing 53.9 ml/min Est GFR ( Amer) 67.5 ml/min Est GFR (Non-Af Amer) 58.2 ml/min BUN/Creatinine Ratio 10.5 (10-20) Glucose 209 H (70-99) mg/dl Estimat Average Glucose 140 mg/dl Hemoglobin A1c 6.5 H (4.5-5.6) % Calcium 9.5 (8.5-10.1) mg/dl Troponin I (0-0.045) ng/ml TSH (0.300-4.500) uIu/ml COVID-19 Eval Order SARS-CoV-2 (PCR) (Negative) 04/09/21 04/09/21 04/09/21 Range/Units 15:50 16:14 16:14 WBC (4.8-10.8) K/uL RBC (4.2-5.4) M/uL Hgb (12.0-16.0) g/dL Hct (37-47) % MCV (80-100) fL MCH (25-34) pg MCHC (32-36) g/dL RDW Std Deviation (36.4-46.3) fL RDW Coeff of Maria Guadalupe (11.5-14.5) % Plt Count (130-400) K/uL MPV (7.4-10.4) fL Immature Gran % (Auto) % Neut % (Auto) % Lymph % (Auto) % [place] % (Auto) % Eos % (Auto) % Baso % (Auto) % Neut # (Auto) (1.4-6.5) K/uL Lymph # (Auto) (1.2-3.4) K/uL [place] # (Auto) (0.11-0.59) K/uL Eos # (Auto) (0-0.5) K/uL Baso # (Auto) (0-0.2) K/uL Immature Gran # (Auto) (0.00-0.02) K/uL Sodium (136-145) mmol/L Potassium (3.5-5.1) mmol/L Chloride (98-107) mmol/L Carbon Dioxide (21-32) mmol/L Anion Gap (3-11) BUN (7-18) mg/dl Creatinine (0.6-1.2) mg/dl Est Cr Clr Drug Dosing ml/min Est GFR ( Amer) ml/min Est GFR (Non-Af Amer) ml/min BUN/Creatinine Ratio (10-20) Glucose (70-99) mg/dl Estimat Average Glucose mg/dl Hemoglobin A1c (4.5-5.6) % Calcium (8.5-10.1) mg/dl Troponin I 6.310 H* (0-0.045) ng/ml TSH 3.930 (0.300-4.500) uIu/ml COVID-19 Eval Order Covid19 at [facility] SARS-CoV-2 (PCR) NEGATIVE (Negative) Imaging Data Radiologist's Impression: Chest X-Ray 04/09/21 15:39 XR chest 1V portable CLINICAL HISTORY: dyspnea COMPARISON STUDY: December 05, 2015. FINDINGS: No pneumothorax. No pleural effusion. No large infiltrates or consolidative lesions are seen. Mild diffuse prominence of pulmonary interstitium. Cardiomediastinal silhouette is within normal limits in size. No significant pulmonary vascular congestion.. Osseous structures: unremarkable IMPRESSION: 1. No large infiltrates or consolidative lesions. Mild diffuse nonspecific prominence of pulmonary interstitium which could represent scattered atelectasis, pulmonary edema, chronic fibrosis or bronchitis. ACT 112: Negative or not required by law. The above report was generated using voice recognition software. It may contain grammatical, syntax or spelling errors. Electronically signed by: Lani Rodriguez DO 04/09/2021 4:48 PM ECG Data Additional Comments: Sinus tachycardia, rate of 115, normal HI, wide QRS, left bundle branch block pattern. No obvious sgarbossa criteria present. MDM Narrative Patient was seen due to concern for shortness of breath and does have a remote history of asthma. Is been ongoing several days but was not relieved by albuterol inhaler today. The patient denies any fevers or chills. The patient not vaccinated for Covid. The patient's had a mild cough. Nonproductive. Frankie almendarez did have one episode of vomiting today after the coughing. Patient denies any lower extremity swelling history recent surgeries procedures or travel. The patient denies any prior history of DVT or PE. Patient is a smoker. Last smoked yesterday. Blood work was obtained chest x-ray. Patient was also treated symptomatically with medications to help with possible asthma. Patient is white count of 15 with normal H&H and platelet count. Kidney function is unremarkable. The patient did have a very mild anion gap and lower bicarb with elevated glucose. No prior history of diabetes. Believe this likely secondary to dehydration the patient did receive IV fluids. Patient's potassium is slightly low but this may be secondary to increased albuterol use. Covid negative. Chest x-ray does not show any focal consolidation. There is some prominence of the pulmonary interstitium. Upon reassessment the patient did look and feel improved. Additional IV fluids were ordered given the patient's slight gap and bicarb. I did inform the patient of the hyperglycemia and that she would benefit from follow-up in the outpatient setting. Upon subsequent reassessment the patient did have a coughing fit desatted to the high 80s. The patient was placed on supplemental oxygen and a repeat neb steroids and mag were ordered along with a CT angiogram of the chest to be for PE as well as possible occult pneumonia. Patient's EKG did show a left bundle. No obvious sgarbossa criteria. Azith romycin ordered. I did speak the on-call hospitalist ABDULLAHI Cruz and the patient was admitted by Dr. Amador. Impression & Plan Asthma exacerbation, Acute respiratory failure with hypoxia, Encounter for smoking cessation counseling Critical Care Time Critical Care Time: Yes Total Critical Care Time: 55 Discharge Plan Visit Data Chief Complaint: Asthma Stated Complaint: ASTHMA ATTACK - SOB - HARD TO TALK ED Provider: Shreyas Lee Discharge Problem: Asthma exacerbation, Acute respiratory failure with hypoxia, Encounter for smoking cessation counseling Discharge Instructions Interventions: ED Discharge Assessment Last Done: 04/09/21 19:55 Discharge Problem: Asthma exacerbation Qualifiers: Asthma severity: severe Asthma persistence: persistent Qualified Code(s): J45.51 - Severe persistent asthma with (acute) exacerbation
[2021-04-09 16:11] LABS: Basophils # (auto) 0.04 K/uL (0-0.2); Basophils % (auto) 0.3 %; Eosinophils % (auto) 0.6 %; Hematocrit (blood only) 42.2 % (37-47); Hemoglobin 14.7 g/dL (12.0-16.0); Immature Granulocytes # (auto) 0.04 K/uL (0.00-0.02); Immature Granulocytes % (auto) 0.3 %; Lymphocytes % (auto) 18.7 %; Mean Corpuscular Hemoglobin 31.7 pg (25-34); Mean Corpuscular Hgb Conc 34.8 g/dL (32-36); Mean Corpuscular Volume 91.1 fL (80-100); Mean Platelet Volume 10.5 fL (7.4-10.4); Monocytes % (auto) 4.5 %; Neutrophils # (auto) 11.69 K/uL (1.4-6.5); Neutrophils % (auto) 75.6 %; Platelet Count 363 K/uL (130-400); RDW Coefficient of Variation 12.8 % (11.5-14.5); RDW Standard Deviation 42.6 fL (36.4-46.3); Red Blood Count 4.63 M/uL (4.2-5.4); White Blood Count 15.47 K/uL (4.8-10.8)
[2021-04-09 16:36] LABS: BUN Creatinine Ratio 10.5 (10-20); Calcium 9.5 mg/dl (8.5-10.1); Creatinine Clr Calc Pharmacy 53.9 ml/min; Est GFR (African American) 67.5 ml/min; Est GFR (Non-African American) 58.2 ml/min; Potassium 3.3 mmol/L (3.5-5.1)
--- NOTE | 2021-04-09 16:49 | XRay Report ---
XR chest 1V portable CLINICAL HISTORY: dyspnea COMPARISON STUDY: December 05, 2015. FINDINGS: No pneumothorax. No pleural effusion. No large infiltrates or consolidative lesions are seen. Mild diffuse prominence of pulmonary intersti tium. Cardiomediastinal silhouette is within normal limits in size. No significant pulmonary vascular congestion.. Osseous structures: unremarkable IMPRESSION: 1. No large infiltrates or consolidative lesions. Mild diffuse nonspecific prominence of pulmonary i nterstitium which could represent scattered atelectasis, pulmonary edema, chronic fibrosis or bronchi tis. ACT 112: Negative or not required by law. The above report was generated using voice recognition software. It may contain grammatical, syntax o r spelling errors. Electronically signed by: Lani Rodriguez DO 04/09/2021 4:48 PM
[2021-04-09] MEDS ORDERED: SODIUM CHLORIDE 0.9% 1000ML 1,000 ML IV ONE (17:29)
[2021-04-09] MEDS ORDERED: KETOROLAC 30 MG/ML VIAL IV STA (17:42)
[2021-04-09] MEDS ORDERED: OPTIRAY 320 125ml IV ONE (17:52)
[2021-04-09] MEDS ORDERED: ALBUT/IPRATROP 3MG/0.5MG NEB 3 ML VIAL NEB ONE (17:58)
[2021-04-09] MEDS ORDERED: MAGNESIUM SULFATE 1GM / D5W BAG IV ONE (18:02)
[2021-04-09] MEDS ORDERED: POTASSIUM CHLORIDE CRTAB 20 MEQ TABCR PO ONE (18:22)
[2021-04-09] MEDS ORDERED: HYDROcodone/HOMATROPINE SYRUP 5MG/1.5MG 5ML UDP PO PRN (18:24)
[2021-04-09] MEDS ORDERED: LORazepam 1 MG/2 ML VIAL IV STA (18:55)
[2021-04-09 18:58] LABS: Thyroid Stimulating Hormone 3.93 uIu/ml (0.300-4.500)
[2021-04-09 19:18] LABS: Troponin I 6.31 ng/ml (0-0.045)
--- NOTE | 2021-04-09 19:20 | History & Physical Report ---
Date of Service April 09, 2021 Assessment & Plan (1) LBBB (left bundle branch block): (2) Elevated troponin: Plan: -new LBBB, troponin 6.3 -heart alert called -further recs after cardiac cath (3) Asthma exacerbation: Plan: -IV steroids, nebs -empiric azithro -CTA ordered by ED however will d/c d/t dye load from cardiac cath (4) Hypothyroidism: Plan: -patient reports history of, self stopped levothyroxine a few years ago -TSH 3.9 (5) DVT prophylaxis: Plan: -SCDs for now History of Present Illness Chief Complaint: Chest pain, shortness of breath Primary Care Provider: Shae Ruiz MD 45-year-old female with PMH hypothyroidism, anxiety, asthma, tobacco abuse, and the problems listed below who presents the ED for evaluation of chest pain shortness of breath. Patient reports not being seen by a healthcare provider in about 5 years, self stopped all of her medications. Patient reports that yest erday, she developed difficulty breathing and chest discomfort. 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 She reports left-sided chest pain with radiation into the left shoulder with associated left arm numbness. She used her daughter's inhaler and reported brief relief of her symptoms. Symptoms returned today so she then presented to the ED for further evaluation. Patient denies lightheadedness, dizziness, diaphoresis, syncopal events. Denies abdominal pain, nausea, vomiting, diarrhea. No other recent illnesses, fevers, chills. Denies urinary symptoms. In the ED, patient was tachypneic and rhonchorous on exam. She is saturating well on room air. She was given 2 one hour-long nebulizer treatments, IV ketorolac, IV magnesium 1gm x 2, Solu-Medrol 125 mg and 40 mg, IV Zofran, IVF. EKG shows LBBB. Troponin checked and found to be 6.3 CXR negative for acute cardiopulmonary findings. CTA chest pending. Discussed with Dr. Ferrara, heart alert called given elevated trop and new LBBB. Allergies Allergy/AdvReac Type Severity Reaction Status Date / Time hydrocodone AdvReac Intermediate GI SYMPTOMS Verified 04/09/21 16:17 oxycodone AdvReac Mild VOMITING Verified 04/09/21 16:17 tramadol AdvReac Mild VOMITING Verified 04/09/21 16:17 Home Medications Medication Instructions Recorded Confirmed Type No Known Home Medications 04/09/21 04/09/21 History Past Med/Surg History Medical History Anxiety Asthma Chronic pancreatitis Hypothyroidism Migraine headache Placenta previa Surgical History No pertinent past surgical history Family History Father Heart disease Social History Smoking Status: Former smoker Cigarettes Per Day: 3; Smoking End Date: 04/08/21; Second Hand Exposure: No; Do You Dip or Chew Tobacco: No; Tobacco Cessation Education Requested by Patient: No Hx Alcohol Use: No Hx Substance Use: No Preferred Language: Yi Communication Ability: Effective Log Washer Required: No Beliefs That Will Affect Care: None Current Living Situation: Significant Other Other Information That Helps Us Care for You: No Feels Safe at Home: Yes Safety Concerns: Feels Safe At This Time Assistive Devices: Denture - Upper Review of Systems Review of Systems: ROS per HPI, all other systems reviewed and negative Physical Exam Physical Exam: please refer to Dr. Amador's addendum for physical exam Results & Data Results & Data ([facility]) Vital Signs (Past 12 Hours) Vital Signs Temp Pulse Pulse Resp BP Pulse Ox 04/09/21 18:30 117 H 19 196/115 H 99 04/09/21 18:15 110 H 24 95 04/09/21 18:00 115 H 24 183/143 H 97 04/09/21 17:30 107 H 14 192/104 H 98 04/09/21 17:00 101 H 19 99 04/09/21 16:30 112 H 18 100 04/09/21 16:17 92 04/09/21 16:09 113 H 16 157/98 H 100 04/09/21 15:49 114 H 26 H 100 04/09/21 15:35 36.8 C 119 H 28 H 139/84 100 Laboratory Results Short CBC 04/09/21 Range/Units 15:50 WBC 15.47 H (4.8-10.8) K/uL Hgb 14.7 (12.0-16.0) g/dL Hct 42.2 (37-47) % Plt Count 363 (130-400) K/uL BMP 04/09/21 15:50 Sodium 138 Potassium 3.3 L Chloride 106 Carbon Dioxide 18 L BUN 12 Creatinine 1.15 Glucose 209 H Calcium 9.5 Cardiac Enzymes 04/09/21 Range/Units 15:50 Troponin I 6.310 H* (0-0.045) ng/ml Diagnostic Findings Chest X-Ray 04/09/21 15:39 XR chest 1V portable CLINICAL HISTORY: dyspnea COMPARISON STUDY: December 05, 2015. FINDINGS: No pneumothorax. No pleural effusion. No large infiltrates or consolidative lesions are seen. Mild diffuse prominence of pulmonary interstitium. Cardiomediastinal silhouette is within normal limits in size. No significant pulmonary vascular congestion.. Osseous structures: unremarkable IMPRESSION: 1. No large infiltrates or consolidative lesions. Mild diffuse nonspecific prominence of pulmonary interstitium which could represent scattered atelectasis, pulmonary edema, chronic fibrosis or bronchitis. ACT 112: Negative or not required by law. The above report was generated using voice recognition software. It may contain grammatical, syntax or spelling errors. Electronically signed by: Lani Rodriguez DO 04/09/2021 4:48 PM Code Status & VTE Plan VTE Prophylaxis Plan VTE Prophylaxis will be ordered: Yes Supervising Physician Co-Signing Physician Notes Patient seen examined by me, care coordinated with ABDULLAHI Cruz, please refer to her note above for further detail. Patient is a 45-year-old female, with history of asthma and hypothyroidism, currently not on any medications, current smoker, who presents left-sided chest pain difficulty breathing. Initially believed to be asthma attack, and treated in the ED with Solu-Medrol, magnesium, duo nebs treatments. However left-sided chest pain persisted, patient tachycardic, on evaluation LBBB on EKG, which seems to be new. Troponin elevated at 6.3. Patient is sitting up in bed, on nebulizing treatments. at the bedside. She is tachycardic, able to answer questions. Lung sounds are rhonchorous diffusely, no wheezing. She is alert and oriented. Abdomen soft nontender nondistended, no lower extremity edema. Skin is warm and dry. Discussed with Dr. Gonzales given patient's persistent chest pain likely new LBBB on EKG, and elevated troponin. Heart alert was called and patient was taken to Forensic Manager. Found 100% mid LAD occlusion. After Forensic Manager patient is to go to ICU for further observation and close monitoring. Graciela Amador MD (1) Asthma exacerbation Asthma persistence: persistent Asthma severity: severe Qualified Code(s): J45.51 - Severe persistent asthma with (acute) exacerbation
[2021-04-09] MEDS ORDERED: niCARdipine HCL INJ 2.5 MG/ML 10 ML AMP ONE (19:41)
[2021-04-09] MEDS ORDERED: HEPARIN (PORCINE) 1000 UNIT/ML 10 ML (CATH LAB USE ONLY) ONE ×2 (19:41→20:34)
[2021-04-09] MEDS ORDERED: fentaNYL citrate 100 MCG/2 ML VIAL ONE ×2 (19:41→20:07)
[2021-04-09] MEDS ORDERED: MIDAZOLAM HCL 1 MG/ML 2ML VIAL ONE ×3 (19:41→20:22)
[2021-04-09] MEDS ORDERED: NITROGLYCERIN/D5W 100MCG/ML 20ML SYR ONE (19:42)
[2021-04-09] MEDS ORDERED: ONDANSETRON INJ 2 MG/ML 2 ML VIAL ONE ×2 (19:57→20:30)
--- NOTE | 2021-04-09 20:00 | Pre Anesthesia Assessment ---
Date of Service April 09, 2021 Pre Sedation Assessment Vital Signs Temp Pulse Pulse Resp BP BP Pulse Ox 04/09/21 19:50 129 H 22 140/107 H 91 04/09/21 19:46 129 H 18 156/113 H 92 04/09/21 19:42 132 H 18 168/109 H 93 04/09/21 19:36 130 H 18 170/108 H 97 04/09/21 19:34 131 H 18 159/113 H 96 04/09/21 19:26 138 H 26 H 169/114 H 95 04/09/21 18:30 117 H 19 196/115 H 99 04/09/21 18:15 110 H 24 95 04/09/21 18:00 115 H 24 183/143 H 97 04/09/21 17:30 107 H 14 192/104 H 98 04/09/21 17:00 101 H 19 99 04/09/21 16:30 112 H 18 100 04/09/21 16:17 92 04/09/21 16:09 113 H 16 157/98 H 100 04/09/21 15:49 114 H 26 H 100 04/09/21 15:35 98.2 F 119 H 28 H 139/84 100 Cardiovascular RRR, no murmur, no edema Respiratory normal respiratory effort, lungs clear to auscultation Pre-Sedation Airway Assessment Smoking Status: Current every day smoker Hx Sleep Apnea: No Hx Difficult Intubation: No Short, Thick Neck: No Thyromental Distance: > or= 3.5 Finger Breadths Oral Cavity: + WNL Mallampati Class: III ASA: ASA3 Procedure Planning Contraindications for Sedation: none Current Medications Reviewed: Yes Notes The planned sedation has been discussed with the patient. Informed Consent was obtained. I have identified the patient, determined the appropriateness of sedation and have assessed the patient immediately prior to the procedure. All medicine(s) and interventions are by my order.
--- NOTE | 2021-04-09 20:06 | Cardiology Consultation ---
Date of Consultation April 09, 2021 Assessment & Plan (1) ACS (acute coronary syndrome): Presentation concerning for high risk ACS and recommend proceeding with emergent cardiac catheterization and possible PCI. No apparent contraindications to procedure. Discussed risks, benefits, alternatives of procedure with patient and they are willing to proceed. Further recommendations pending findings of coronary angiography. History of Present Illness Attending Physician: Shailesh Ferrara MD History of Present Illness 45-year-old woman here with chest pain, left bundle branch block and elevated troponin concerning for high risk ACS. Patient seen emergently in the ED after heart alert activated after troponin elevation. No prior cardiac history. Cardiac risk factors include ongoing tobacco use and family history of CAD involving father in his 60s. Other medical issues include hypothyroidism, asthma, chronic pancreatitis. Has been having symptoms of stuttering chest tightness for more than 24 hours with associated shortness of breath. Had one episode of vomiting yesterday. Symptoms improved yesterday after inhaler. Symptoms recurred today with left- sided chest pain radiating to arm and associated arm numbness. Upon arrival to ED was tachypneic with rhonchorous breath sounds and treated for possible asthma exacerbation with Nebulizers, Solu-Medrol, magnesium. Breathing only modestly improved and continued to endorse chest tightness. EKG showing a left bundle branch block not previously known. Troponin checked and was elevated at 6.3. Patient hemodynamically stable. Tachycardic to the 110s to 120s. Still with residual chest tightness, shortness of breath. Social History: . 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 Active smoker. Allergies Allergy/AdvReac Type Severity Reaction Status Date / Time hydrocodone AdvReac Intermediate GI SYMPTOMS Verified 04/09/21 16:17 oxycodone AdvReac Mild VOMITING Verified 04/09/21 16:17 tramadol AdvReac Mild VOMITING Verified 04/09/21 16:17 Home Medications Medication Instructions Recorded Confirmed Type No Known Home Medications 04/09/21 04/09/21 History Patient History Medical History (Updated 04/09/21 @ 20:05 by Neo Ferrara MD) Anxiety Asthma Chronic pancreatitis Hypothyroidism Migraine headache Placenta previa Surgical History No pertinent past surgical history Family History (Updated 07/25/21 @ 19:18 by ABDULLAHI Witt) Father Heart disease Social History Smoking Status: Former smoker Cigarettes Per Day: 3; Smoking End Date: 04/08/21; Second Hand Exposure: No; Do You Dip or Chew Tobacco: No; Tobacco Cessation Education Requested by Patient: No Hx Alcohol Use: No Hx Substance Use: No Preferred Language: Serbian Communication Ability: Effective Educational Therapist Required: No Beliefs That Will Affect Care: None Current Living Situation: Significant Other Other Information That Helps Us Care for You: No Feels Safe at Home: Yes Safety Concerns: Feels Safe At This Time Assistive Devices: Denture - Upper Review of Systems Review of Systems: Not completed in the setting of emergent situation Physical Exam Physical Exam: General: Uncomfortable, very anxious HEENT: Sclerae anicteric Lungs: Coarse breath sounds with wheezes Cardiac: Regular, tachycardic, no murmurs Abdomen: Soft, nontender Extremities: Warm, well perfused, no edema. 2+ radial pulses Skin: No rashes or lesions. Neuro: Nonfocal Psych: Alert orient x3 Results & Data ([facility]) Vital Signs (Past 12 Hours) Vital Signs Temp Pulse Pulse Resp BP BP Pulse Ox 04/09/21 19:50 129 H 22 140/107 H 91 04/09/21 19:46 129 H 18 156/113 H 92 04/09/21 19:42 132 H 18 168/109 H 93 04/09/21 19:36 130 H 18 170/108 H 97 04/09/21 19:34 131 H 18 159/113 H 96 04/09/21 19:26 138 H 26 H 169/114 H 95 04/09/21 18:30 117 H 19 196/115 H 99 04/09/21 18:15 110 H 24 95 04/09/21 18:00 115 H 24 183/143 H 97 04/09/21 17:30 107 H 14 192/104 H 98 04/09/21 17:00 101 H 19 99 04/09/21 16:30 112 H 18 100 04/09/21 16:17 92 04/09/21 16:09 113 H 16 157/98 H 100 04/09/21 15:49 114 H 26 H 100 04/09/21 15:35 98.2 F 119 H 28 H 139/84 100 PG Care Time/CCT Total # of Minutes Spent Total Time Spent with Patient: Total time spent is greater than 50% in coordination of care (as documented) at patient's floor/unit and/or counseling patient: Coding Level of Care Code 49806 Inpt Consult Level 4 Diagnoses ACS (acute coronary syndrome) I24.9
[2021-04-09] MEDS ORDERED: FUROSEMIDE 40 MG/4 ML VIAL IV ONE (20:17)
[2021-04-09] MEDS ORDERED: METOPROLOL TARTRATE 1 MG/ML VIAL IV ONE (20:20)
[2021-04-09] MEDS ORDERED: TICAGRELOR 90 MG TAB PO ONE (20:57)
[2021-04-09] MEDS ORDERED: ACETAMINOPHEN 325 MG TAB PO PRN ×2 (21:05→21:45)
[2021-04-09] MEDS ORDERED: ONDANSETRON INJ 2 MG/ML 2 ML VIAL IV PRN (21:05)
--- NOTE | 2021-04-09 21:20 | Post Anesthesia Assessment ---
Date of Service April 09, 2021 Post Sedation Assessment Vital Signs Temp Pulse Pulse Resp BP BP Pulse Ox 04/09/21 19:50 129 H 22 140/107 H 91 04/09/21 19:46 129 H 18 156/113 H 92 04/09/21 19:42 132 H 18 168/109 H 93 04/09/21 19:36 130 H 18 170/108 H 97 04/09/21 19:34 131 H 18 159/113 H 96 04/09/21 19:26 138 H 26 H 169/114 H 95 04/09/21 18:30 117 H 19 196/115 H 99 04/09/21 18:15 110 H 24 95 04/09/21 18:00 115 H 24 183/143 H 97 04/09/21 17:30 107 H 14 192/104 H 98 04/09/21 17:00 101 H 19 99 04/09/21 16:30 112 H 18 100 04/09/21 16:17 92 04/09/21 16:09 113 H 16 157/98 H 100 04/09/21 15:49 114 H 26 H 100 04/09/21 15:35 98.2 F 119 H 28 H 139/84 100 Recovery Score Activity: Moves 4 extremities Respiration: Deep Breath/Cough Circulation: +/-20% PreAnes Value Consciousness: Fully Awake Oxygen Saturation: O2 needed for >90% Discharge Sedation Level of Care: Fast Track Phase II Post Sedation Plan On clinical assessment, the patient appears to have tolerated the sedation without complications. Patient is recovering as anticipated. Patient will continue to be monitored by nursing and may be discharged when sedation discharge criteria are met per below protocol. Upon Completions of procedure up to 15 minutes continue every 5 minute vital signs and the P.A.R. score; then discharge to a Phase I or Fast Track to Phase II per the following guidelines: * Discharge Patient to appropriate Phase II area if PAR is 8 or greater or return to pre- procedure baseline. The post - procedure orders will be as directed. * If PAR score is less than 8 or not return to pre-procedure baseline then patient will follow Phase I monitoring till PAR is reached for Phase II. The Phase I may be done in procedure room or may call to secure a Phase I area. * If naloxone or flumazenil are used for reversal, hold in Phase I for continued monitoring from when last reversal dose was given for a minimum of 60 minutes or longer pending the nurse and/or physician discretion of patient condition before discharge to Phase II. Please call the Sedation Physician to re-evaluate and complete post-note for discharge to Phase II area. Do NOT discharge from procedure sedation or Phase 1 until post- sedation evaluation note is complete by procedure /sedation MD Sedation Discharge Instructions to be given to the patient at discharge to home.
--- NOTE | 2021-04-09 21:36 | Cardiac Catheterization ---
[facility] Data: Collective Bargaining Specialist Cardiac Status Clinical evaluation leading to the procedure CAD Presenation: Non STEMI Anginal Classification: CCS IV Heart Failure: NYHA Class: CCS IV Cardiogenic Shock within 24 Hours: No Cardiac Arrest within 24 Hours: No Imaging Studies Past 6 Months: No Stress Studies Past 6 Months: No Diagnostic Physicians Name: Shailesh Ferrara MD Status: Emergency Closure Device Percutaneous Entry Location: Radial Closure Device: Radial Band Recommendations: PCI without planned CABG PCI Indication: PCI for high risk Non-RADHA Lesion Segment Name: Mid LAD Culprit Artery: Yes Stenosis Prior to Rx (%): 100 Chronic Total Occlusion: No IVUS: Yes FFR: No Pre-Procedure ESEQUIEL Flow: 0 Previously Treated Lesion: No Lesion Complexity: Non-High/Non-C Lesion Length (mm): 35 Thrombus Present: Yes Guidewire Across Lesion: Stenosis Post-Procedure (%): 0 Post-Procedure ESEQUIEL Flow: 3 Devices(s) Deployed: Yes Yes Intraprocedure Events Significant Disection: No Perforation: No Cardiac Cath Procedure Full Procedure Date April 09, 2021 Pre-Procedure Diagnosis Pre-Procedure Diagnosis: Acute Coronary Syndrome AUC Score AUC Score: 9 Post-Procedure Diagnosis Post-Procedure Diagnosis: Severe CAD, Successful PCI and Elevated Intracardiac Pressures Procedure(s) Performed Procedure(s) Performed: Coronary Angiography, Left Heart Cath, Drug Eluting Stent and IVUS Credit Rating Inspector Shailesh Ferrara MD Staff Submarine Warfare Officer(s) [place] Estimated Blood Loss Estimated Blood Loss: 15 Medication(s) Medication(s): Fentanyl, Heparin, Lidocaine 1%, Nicardipine, Nitroglycerin and Versed Medication(s): Ticagrelor Summary of Findings Indication: STEMI/Heart Alert Access: 6 Fr right radial artery Catheters: Chago EBU 3.5 Findings: LM -normal caliber, no significant disease LAD -medium caliber, acute 100% earlymid LAD occlusion just after takeoff of small D1. After flow reestablished diffuse mid segment disease. Circumflex -dominant, medium caliber, subtotal mid circumflex occlusion. Distal circumflex/left PDA fill partially via right to left collaterals. Large bifurcating OM1 with 70% stenosis in superior branch. RCA -small, nondominant, moderate diffuse disease. Right to left collaterals to distal circumflex. Faint right to left collaterals to apical LAD. LVEDP -25 -- PCI -- Antithrombotic therapy: Heparin, ticagrelor Procedure: Left main cannulated with EBU 3.5 guide Leak Gang Supervisor 50 wire passed across lesion into distal vessel Mid LAD lesion predilated with 2.5 compliant balloon Oxford IVUS catheter passed into distal vessel. Pullback revealed severe diffuse disease throughout mid segment, mildly calcified. Mild disease in proximal LAD. No significant left main disease. Dilated lesion stented with 2.5 x 30 mm Sushil drug-eluting stent Residual disease distal to stent covered with overlapping 2.25 x 12 mm Usshil MICHEL Repeat IVUS showed well apposed stents with no apparent edge complications. Stents underexpanded proximally. Stents post-dilated with 3.5 noncompliant balloon IC vasodilators administered for spasm Post procedure ESEQUIEL 3 flow, stent well expanded with minimal residual stenosis and no apparent cardiac complications. Arterial Closure: TR band Summary: 1. Acute 100% mid LAD occlusion 2. Chronic multivessel CAD -Subtotal mid circumflex occlusion with right to left collaterals 70% stenosis in superior branch of OM1 Small nondominant RCA with moderate diffuse disease 3. Elevated intracardiac filling pressure 4. Successful PCI of mid LAD with 2 overlapping drug-eluting stents (2.5 x 30, 2.25 x 12 Sushil; postdilated with 3.5 NC). Recommendations: Admit to ICU for continued monitoring Loaded with ticagrelor 180 mg in Collective Bargaining Specialist Continue dual-antiplatelet therapy for at least 1 year. Trend troponins until peak, Check Echo Uptitrate beta-nita/DONNY as BP allows High-dose statin Consult cardiac Rehab Possible PCI to subtotal dominant circumflex occlusion later in this hospitalization. Hemodynamics Rest Ao:: 129/84/116 Final Ao: 118/84/97 LV: 124/25 Recommendations Recommendations: PCI without planned CABG Specimens Specimens: None Radiation Exposure (mGy) 1733 Contrast (mls) 110 Fluids (cc crystalloids) Fluids (cc crystalloids): 100 Drains Drains: None Anesthesia Moderate 4400-8691 Procedural Complication(s) None Disposition ICU I attest to the content of the Intraoperative Record and any orders documented therein. Any exceptions are noted below. [facility] Card Cath Procedure Codes Cardiac Catheterization Procedure 1: Cardiovascular Cath Procedures: 44079 Coronaries and LHC (+/-LV) Therapeutic Services & Ancillary Proc Procedure 1: Cardiovascular Tx and Anc Procedures: 56882 IV Ultrasound (Coronary or Graft) Moderate Sedation Procedure 1: Sedation/Anesthesia: 05598 Mod Sedation by the same physician;Init15 Min Child Age 5 & Up Procedure 2: Sedation/Anesthesia: 29368 Mod Sedation by the same physician; Ea [id number] Minutes Stenting Procedure 1: Cardiovascular Stent Procedures: 49751 Perc transluminal revascularization of acute sub/total occl, aMI PG Care Time/CCT Total # of Minutes Spent Total Time Spent with Patient: Total time spent is greater than 50% in coordination of care (as documented) at patient's floor/unit and/or counseling patient:
[2021-04-09] MEDS ORDERED: CARBOHYDRATES FOR HYPOGLYCEMIA PO PRN (21:45)
[2021-04-09] MEDS ORDERED: ICU PROTOCOL FOR HYPERGLYCEMIA PRN (21:45)
[2021-04-09] MEDS ORDERED: GLUCOSE 10 TABS/TUBE PO PRN (21:45)
[2021-04-09] MEDS ORDERED: GLUCAGON FOR INJ 1 MG VIAL SQ PRN (21:45)
[2021-04-09] MEDS ORDERED: DEXTROSE 50% 50 ML SYRINGE IV PRN (21:45)
[2021-04-09] MEDS ORDERED: GLUCOSE 40% GEL 15 GM TUBE PO PRN (21:45)
--- NOTE | 2021-04-09 21:45 | Critical Care Consultation ---
Date of Consultation April 09, 2021 Assessment & Plan (1) Admitted to intensive care unit: Reason Critically Ill: 45-year-old female with acute ACS with new left bundle branch block in the setting of stuttering chest pain over the last 36 to 48 hours with elevated troponin requiring emergent cardiac catheterization with findings consistent with 100% occlusion of the mid LAD. Patient is status post drug-eluting stent placement x2 to the LAD. She will require close hemodynamic monitoring status post coronary intervention. NEURO - * CAM ICU: NEGATIVE CARDIAC/VASCULAR - * ACS: * Findings of new LBBB in the setting of stuttering chest pain and shortness of breath with elevated troponin. * Symptoms near completely resolved s/p stenting. * Patient to be reevaluated in the next 24-48 hours for repeat cath to assess/treat Circumflex/OM1 lesion. * ASCVD Rx per cardiology. * Trend troponins. * AM Echo * EKG: sinus tachycardia @ 129 bpm. New LBBB. QTc 474 ms. * Monitor on telemetry. RESPIRATORY - * Hypoxia: * Likely 2/2 pulmonary congestion in the setting of ACS. * Improving oxygenation s/p Lasix dosing. * Discussed NIPPV if needed. GI/NUTRITION - * AHA Diet RENAL/LYTES - * Hypokalemia: * Replace as needed. - * Pizarro in place - Strict I&Os. ENDO - * Hyperglycemia: * BSGs per unit protocol. ISS --> gtt per unit policy. * Likely component of stress s/p steroid administration in the ED. HEME - * Stable H&H ID - * No concerns for infectious causes at this time. LINES/IV ACCESS - * PIVs x2 * Pizarro DVT PROPHYLAXIS - * Hold s/p petroleum laboratory technician Rx * SCDs I have personally spent 32 minutes of critical care time in the direct management of this patient. This is a life/limb threatening event. This includes time spent evaluating patient, direct bedside care, chart review, placing orders, interpretation of diagnostic studies, discussion with consultants, patient, and family members, as well as other required patient management activities. This time is exclusive of all separately billable procedures, and teaching time and separate from and in addition to any other critical care service time. Thank you for allowing us to participate in the care of this patient. Please refer to my attending physician's documentation for any further recommendations. (2) ACS (acute coronary syndrome): (3) S/P PTCA (percutaneous transluminal coronary angioplasty): (4) S/P drug eluting coronary stent placement: (5) Elevated troponin: (6) LBBB (left bundle branch block): History of Present Illness Attending Physician: Shailesh Ferrara MD History of Present Illness Patient is a 45-year-old female with a remote past medical history of asthma and daily cigarette smoker who presented to the emergency department today with complaints of chest discomfort and shortness of breath. She reports that her symptoms initially started Saturday evening when she noticed an episode of LEFT- sided chest discomfort at rest with some associated shortness of breath. She reports that the symptoms lasted for several hours but then completely resolved. 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 She reports that she can continue to rub her arm as she felt that this is make it better, but symptoms did not improve. She states that she took an [id number] PPI that her mother gave her as she was thinking that this was from indigestion which she is experienced in the past. She felt as though this may have helped her symptoms slightly, but she persisted with waxing and waning discomfort. Last night, she did have an episode of chest discomfort with associated emesis. She states that she was unable to lay flat in her back secondary to shortness of breath and increasing pain. She did get a few hours of sleep and actually reports that she went to buddhist this morning and did very well until she was at a buddhist picnic afterwards during which she reports that she developed the chest tightness and heaviness with associated shortness of breath. She was able to drive herself home and states that when the intensity of pain continue to worsen, she elected to come to the emergency department which she had declined to do over the last 36 to 48 hours. In the emergency department, the patient was noted to be short of breath with concerns for wheezing. She had received duo nebs as well as Solu-Medrol. Chest x-ray demonstrated some mild pulmonary vascular congestion without infiltrative process. Patient had apparently felt slightly better while in the ED, but then had return of symptoms of chest discomfort. An EKG was obtained and demonstrated new LEFT bundle branch block. Troponin was elevated at greater than 6. HEART ALERT was initiated and the patient was taken emergently to the catheterization suite where she underwent PTCI with MICHEL x2 to the LAD. Additionally, the patient was found to have subtotal mid circumflex occlusion with right to left collaterals and 70% stenosis in superior branch of OM1. Intraprocedurally, the patient did receive Lasix 40 mg as she was noted to have increasing hypoxia. Otherwise, the patient's procedure went uneventfully. Upon evaluation in the ICU, the patient is awake, alert, and oriented. She reports feeling much better and states that she can breathe more comfortably and lay flat which is the first in the last 36 to 48 hours. She states that she does have some residual discomfort to the LEFT shoulder area, but her LEFT-sided chest which was the most intense on arrival has near completely resolved. At this point, other than the LEFT-sided shoulder discomfort, patient denies any complaints of headaches, dizziness, lightheadedness, palpitations, shortness of breath, pleuritic pain, nausea, vomiting, abdominal pain, or numbness/weakness to the extremities. Patient reports that she is a daily smoker. She states that she has been praying about this recently and wishes to quit. She hopes that this is what she needs to help her quit. Otherwise, she reports occasional social drinking. Allergies Allergy/AdvReac Type Severity Reaction Status Date / Time hydrocodone AdvReac Intermediate GI SYMPTOMS Verified 04/09/21 16:17 oxycodone AdvReac Mild VOMITING Verified 04/09/21 16:17 tramadol AdvReac Mild VOMITING Verified 04/09/21 16:17 Home Medications Medication Instructions Recorded Confirmed Type No Known Home Medications 04/09/21 04/09/21 History Patient History Medical History Anxiety Asthma Chronic pancreatitis Hypothyroidism Migraine headache Placenta previa Surgical History No pertinent past surgical history Family History Father Heart disease Social History Smoking Status: Former smoker Cigarettes Per Day: 3; Smoking End Date: 7/24/21; Second Hand Exposure: No; Do You Dip or Chew Tobacco: No; Tobacco Cessation Education Requested by Patient: No Hx Alcohol Use: No Hx Substance Use: No Preferred Language: Arabic Communication Ability: Effective Puppet Engineer Required: No Beliefs That Will Affect Care: None Current Living Situation: Significant Other Other Information That Helps Us Care for You: No Feels Safe at Home: Yes Safety Concerns: Feels Safe At This Time Assistive Devices: Denture - Upper Review of Systems Review of Systems: A complete 10 point review of systems was reviewed with the patient with pertinent positives and negatives as per history of present illness. All else were negative. Physical Exam Physical Exam: VITAL SIGNS - Vital signs and nursing notes were reviewed. GENERAL - 45-year-old female appearing her stated age who is in no acute distress. Communicates well with provider and answers questions appropriately. HEAD - NC/AT. EYES - PERRL with EOMI bilaterally. Sclera anicteric. Palpebral conjunctiva pink and moist with no injection noted. EARS - No deformities of external structures noted on gross examination bilaterally. NOSE - Midline and without cyanosis. No epistaxis or purulent drainage noted. MOUTH/OROPHARYNX - Without perioral cyanosis. Buccal mucosa pink and moist and without leukoplakia. NECK - Neck with FROM. LUNGS - Chest wall symmetric without accessory muscle use, intercostals retractions, or central cyanosis. Normal vesicular breath sounds with bibasilar rales noted. CARDIAC - RRR with S1/S2. No murmur, rubs, or gallops appreciated. No reproducible tenderness to palpation appreciated over the anterior chest wall. ABDOMEN - Abdominal contour flat without pulsations or visible masses. BS normoactive all four quadrants. No tenderness, palpable masses, hepatosplenomegaly, or ascites noted. EXTREMITIES - No clubbing or peripheral cyanosis. No pretibial edema present. +3/5 radial and dorsalis pedis pulses palpated throughout. +5/5 strength noted in UE/LE bilaterally. NEUROLOGIC - Cranial nerves II through XII grossly intact. Sensory intact to light touch throughout. PSYCH - A&Ox3 and cooperates fully with examiner. Pt is very pleasant and interacts well with examiner. Results & Data Results & Data ([facility]) Vital Signs (Past 12 Hours) Vital Signs Temp Pulse Pulse Resp BP BP Pulse Ox 04/09/21 21:32 36.8 C 110 H 17 148/106 H 93 04/09/21 19:50 129 H 22 140/107 H 91 04/09/21 19:46 129 H 18 156/113 H 92 04/09/21 19:42 132 H 18 168/109 H 93 04/09/21 19:36 130 H 18 170/108 H 97 04/09/21 19:34 131 H 18 159/113 H 96 04/09/21 19:26 138 H 26 H 169/114 H 95 04/09/21 18:30 117 H 19 196/115 H 99 04/09/21 18:15 110 H 24 95 04/09/21 18:00 115 H 24 183/143 H 97 04/09/21 17:30 107 H 14 192/104 H 98 04/09/21 17:00 101 H 19 99 04/09/21 16:30 112 H 18 100 04/09/21 16:17 92 04/09/21 16:09 113 H 16 157/98 H 100 04/09/21 15:49 114 H 26 H 100 04/09/21 15:35 36.8 C 119 H 28 H 139/84 100 Coding Level of Care Code Critical Care 1st - mins Diagnoses Admitted to intensive care unit Z78.9 ACS (acute coronary syndrome) I24.9 S/P PTCA (percutaneous transluminal coronary angioplasty) Z98.61 S/P drug eluting coronary stent placement Z95.5 Elevated troponin R77.8 LBBB (left bundle branch block) I44.7 Time Spent (min) 32
[2021-04-09] MEDS ORDERED: AZITHROMYCIN 500 MG in DEXTROSE 5% 250 ML IV SCH (22:00)
[2021-04-09] MEDS: INSULIN ASPART 100 UNITS/ML 3 ML PEN SC SCH (22:14)
[2021-04-09] MEDS: ALBUT/IPRATROP 3MG/0.5MG NEB 3 ML VIAL NEB SCH (22:55)
[2021-04-10 03:56] LABS: Hematocrit (blood only) 42.4 % (37-47); Hemoglobin 14.8 g/dL (12.0-16.0); Mean Corpuscular Hemoglobin 31.8 pg (25-34); Mean Corpuscular Hgb Conc 34.9 g/dL (32-36); Mean Corpuscular Volume 91.2 fL (80-100); Mean Platelet Volume 10.3 fL (7.4-10.4); Platelet Count 332 K/uL (130-400); RDW Coefficient of Variation 13.1 % (11.5-14.5); RDW Standard Deviation 43.3 fL (36.4-46.3); Red Blood Count 4.65 M/uL (4.2-5.4); White Blood Count 23.33 K/uL (4.8-10.8)
[2021-04-10 04:12] LABS: Creatinine Clr Calc Pharmacy 65.3 ml/min; Est GFR (Non-African American) 73.4 ml/min; Potassium 4.3 mmol/L (3.5-5.1)
[2021-04-10 04:13] LABS: Magnesium 2.2 mg/dl (1.8-2.4); Phosphorus 1.6 mg/dl (2.5-4.9); Troponin I 72.3 ng/ml (0-0.045)
[2021-04-10 04:15] LABS: BUN Creatinine Ratio 13.6 (10-20)
[2021-04-10] MEDS ORDERED: SODIUM PHOSPHATE 3 MMOL/1 ML INFUSION IV STA (06:50)
--- NOTE | 2021-04-10 07:04 | Hospitalist Progress Note ---
Date of Service April 10, 2021 Assessment & Plan (1) LBBB (left bundle branch block): (2) Elevated troponin: Plan: NSTEMI -new LBBB, troponin 6.3 -Dr. Ferrara notified and heart alert called -Pt is now s/p cardiac cath (04/09/2021) Findings: LM -normal caliber, no significant disease LAD -medium caliber, acute 100% earlymid LAD occlusion just after takeoff of small D1. After flow reestablished diffuse mid segment disease. Circumflex -dominant, medium caliber, subtotal mid circumflex occlusion. Distal circumflex/left PDA fill partially via right to left collaterals. Large bifurcating OM1 with 70% stenosis in superior branch. RCA -small, nondominant, moderate diffuse disease. Right to left collaterals to distal circumflex. Faint right to left collaterals to apical LAD. Summary: 1. Acute 100% mid LAD occlusion 2. Chronic multivessel CAD -Subtotal mid circumflex occlusion with right to left collaterals 70% stenosis in superior branch of OM1 Small nondominant RCA with moderate diffuse disease 3. Elevated intracardiac filling pressure 4. Successful PCI of mid LAD with 2 overlapping drug-eluting stents (2.5 x 30, 2.25 x 12 Snook; postdilated with 3.5 NC). -Found to have 100% mid LAD occlusion, status post 2 MICHEL Started on dual antiplatelet therapy on which patient should be for at least 1 year Trend troponin until peak Obtain echocardiogram beta-nita, DONNY inhibitor as BP allows Patient started on high-dose statin Possible PCI subtotal circumflex occlusion later this hospitalization Echo -normal LV size and wall thickness. LVEF 20 to 25%. Apical akinesis. Mild anterior/anteroseptal/septum/inferior akinesis. Hypokinetic basal septum/inferior segments and mid lateral/inferolateral segments. Normal RV size and function. Mild mitral regurg. Borderline pulmonary hypertension est PASP 40 mmHg. Dilated IVC. est RA 15 mmHg. Compared with prior study on April 27, 2014 severe LV dysfunction, wall motion abnormalities are new (3) Asthma exacerbation: Plan: -IV steroids, nebs -empiric azithro -CTA ordered by ED however will d/c d/t dye load from cardiac cath (4) Hypothyroidism: Plan: -patient reports history of, self stopped levothyroxine a few years ago -TSH 3.9 (5) DVT prophylaxis: Plan: -SCDs for now Admission and Anticipated Discharge Date Admission Date: April 09, 2021 Subjective Patient seen in follow-up of NSTEMI, chest garnett, status post cardiac cath and placed 2 stents last evening Currently patient states that she feels again like herself, and she can finally breathe She is currently only on 1 L of oxygen on nasal cannula She is speaking in full sentences without difficulty Denies any more chest pain or arm pain however has some left shoulder discomfort Previously reported left arm numbness, that also resolved No fevers chills, nausea vomiting, abdominal pain or lower extremity edema Review of Systems Constitutional: no fever and no chills Respiratory: no cough and no dyspnea Cardiovascular: no chest pain and no palpitations Gastrointestinal: no abdominal pain, no nausea and no vomiting Physical Exam Constitutional: WD/WN, vitals as above Eyes: PERRL, conjunctivae normal, anicteric sclerae ENMT: external ear and nose normal, oropharynx normal Neck: trachea midline, no thyromegaly Respiratory: normal respiratory effort, lungs clear to auscultation Auscultation: no crackles, no rhonchi and no wheezes Cardiovascular: RRR, no murmur, no edema Gastrointestinal (Abdomen): normal bowel sounds, soft, nontender, no hepatosplenomegaly Musculoskeletal: no cyanosis or clubbing, extremities motor strength 5/5 Skin: no rashes, warm and dry Neurologic: PERRL, EOMI, accommodation nl, no face palsy, no dysarthria Psychiatric: Orientation: alert and oriented x 3 Mood: + anxious mood Results & Data Results & Data ([facility]) Vital Signs (Past 12 Hours) Vital Signs Temp Pulse Pulse Resp BP BP Pulse Ox 04/10/21 05:00 104 H 17 99 04/10/21 04:39 105 H 15 99 04/10/21 03:39 100 H 23 138/93 98 04/10/21 02:39 104 H 22 159/105 H 99 04/10/21 01:09 108 H 21 123/94 97 04/10/21 00:09 110 H 27 H 157/102 H 94 04/09/21 23:54 37 C 109 H 25 H 158/109 H 90 04/09/21 23:39 109 H 18 154/109 H 96 04/09/21 23:24 111 H 29 H 155/112 H 92 04/09/21 23:09 112 H 25 H 160/106 H 94 04/09/21 22:45 114 H 27 H 95 04/09/21 22:39 109 H 22 96 04/09/21 22:24 108 H 17 162/104 H 97 04/09/21 22:09 109 H 22 149/122 H 97 04/09/21 22:01 118 H 98/61 L 04/09/21 21:54 111 H 17 157/105 H 97 04/09/21 21:37 111 H 23 94 04/09/21 21:32 36.8 C 110 H 17 148/106 H 93 04/09/21 19:50 129 H 22 140/107 H 91 04/09/21 19:46 129 H 18 156/113 H 92 04/09/21 19:42 132 H 18 168/109 H 93 04/09/21 19:36 130 H 18 170/108 H 97 04/09/21 19:34 131 H 18 159/113 H 96 04/09/21 19:26 138 H 26 H 169/114 H 95 Laboratory Results 04/10/21 04/10/21 04/09/21 Range/Units 03:16 03:11 Unknown WBC 23.33 H (4.8-10.8) K/uL RBC 4.65 (4.2-5.4) M/uL Hgb 14.8 (12.0-16.0) g/dL Hct 42.4 (37-47) % MCV 91.2 (80-100) fL MCH 31.8 (25-34) pg MCHC 34.9 (32-36) g/dL RDW Std Deviation 43.3 (36.4-46.3) fL RDW Coeff of Maria Guadalupe 13.1 (11.5-14.5) % Plt Count 332 (130-400) K/uL MPV 10.3 (7.4-10.4) fL Immature Gran % (Auto) % Neut % (Auto) % Lymph % (Auto) % [place] % (Auto) % Eos % (Auto) % Baso % (Auto) % Neut # (Auto) (1.4-6.5) K/uL Lymph # (Auto) (1.2-3.4) K/uL [place] # (Auto) (0.11-0.59) K/uL Eos # (Auto) (0-0.5) K/uL Baso # (Auto) (0-0.2) K/uL Immature Gran # (Auto) (0.00-0.02) K/uL Sodium 138 (136-145) mmol/L Potassium 4.3 D (3.5-5.1) mmol/L Chloride 108 H (98-107) mmol/L Carbon Dioxide 19 L (21-32) mmol/L Anion Gap 22 H (3-11) BUN 13 (7-18) mg/dl Creatinine 0.95 (0.6-1.2) mg/dl Est Cr Clr Drug Dosing 65.3 ml/min Est GFR ( Amer) 85.0 ml/min Est GFR (Non-Af Amer) 73.4 ml/min BUN/Creatinine Ratio 13.6 (10-20) Glucose 232 H (70-99) mg/dl POC Glucose (70-99) mg/dl Estimat Average Glucose Hemoglobin A1c Calcium 8.0 L D (8.5-10.1) mg/dl Phosphorus 1.6 L (2.5-4.9) mg/dl Magnesium 2.2 (1.8-2.4) mg/dl Troponin I 72.300 H* (0-0.045) ng/ml Triglycerides 323 H (0-150) mg/dl Cholesterol 300 H (0-200) mg/dl LDL Cholesterol Direct 179 mg/dl LDL Cholesterol, Calc 182 mg/dl VLDL Cholesterol, Calc 65 mg/dl HDL Cholesterol 53 mg/dl Cholesterol/HDL Ratio 6 TSH (0.300-4.500) uIu/ml Nasal Screen MRSA (PCR) Negative (Negative) COVID-19 Eval Order SARS-CoV-2 (PCR) (Negative) 04/09/21 04/09/21 04/09/21 Range/Units 22:07 16:14 16:14 WBC (4.8-10.8) K/uL RBC (4.2-5.4) M/uL Hgb (12.0-16.0) g/dL Hct (37-47) % MCV (80-100) fL MCH (25-34) pg MCHC (32-36) g/dL RDW Std Deviation (36.4-46.3) fL RDW Coeff of Maria Guadalupe (11.5-14.5) % Plt Count (130-400) K/uL MPV (7.4-10.4) fL Immature Gran % (Auto) % Neut % (Auto) % Lymph % (Auto) % [place] % (Auto) % Eos % (Auto) % Baso % (Auto) % Neut # (Auto) (1.4-6.5) K/uL Lymph # (Auto) (1.2-3.4) K/uL [place] # (Auto) (0.11-0.59) K/uL Eos # (Auto) (0-0.5) K/uL Baso # (Auto) (0-0.2) K/uL Immature Gran # (Auto) (0.00-0.02) K/uL Sodium (136-145) mmol/L Potassium (3.5-5.1) mmol/L Chloride (98-107) mmol/L Carbon Dioxide (21-32) mmol/L Anion Gap (3-11) BUN (7-18) mg/dl Creatinine (0.6-1.2) mg/dl Est Cr Clr Drug Dosing ml/min Est GFR ( Amer) ml/min Est GFR (Non-Af Amer) ml/min BUN/Creatinine Ratio (10-20) Glucose (70-99) mg/dl POC Glucose 368 H* (70-99) mg/dl Estimat Average Glucose Hemoglobin A1c Calcium (8.5-10.1) mg/dl Phosphorus (2.5-4.9) mg/dl Magnesium (1.8-2.4) mg/dl Troponin I (0-0.045) ng/ml Triglycerides (0-150) mg/dl Cholesterol (0-200) mg/dl LDL Cholesterol Direct mg/dl LDL Cholesterol, Calc mg/dl VLDL Cholesterol, Calc mg/dl HDL Cholesterol mg/dl Cholesterol/HDL Ratio TSH (0.300-4.500) uIu/ml Nasal Screen MRSA (PCR) (Negative) COVID-19 Eval Order Covid19 at [facility] SARS-CoV-2 (PCR) NEGATIVE (Negative) 04/09/21 04/09/21 04/09/21 Range/Units 15:50 15:50 15:50 WBC (4.8-10.8) K/uL RBC (4.2-5.4) M/uL Hgb (12.0-16.0) g/dL Hct (37-47) % MCV (80-100) fL MCH (25-34) pg MCHC (32-36) g/dL RDW Std Deviation (36.4-46.3) fL RDW Coeff of Maria Guadalupe (11.5-14.5) % Plt Count (130-400) K/uL MPV (7.4-10.4) fL Immature Gran % (Auto) % Neut % (Auto) % Lymph % (Auto) % [place] % (Auto) % Eos % (Auto) % Baso % (Auto) % Neut # (Auto) (1.4-6.5) K/uL Lymph # (Auto) (1.2-3.4) K/uL [place] # (Auto) (0.11-0.59) K/uL Eos # (Auto) (0-0.5) K/uL Baso # (Auto) (0-0.2) K/uL Immature Gran # (Auto) (0.00-0.02) K/uL Sodium 138 (136-145) mmol/L Potassium 3.3 L (3.5-5.1) mmol/L Chloride 106 (98-107) mmol/L Carbon Dioxide 18 L (21-32) mmol/L Anion Gap 14.0 H (3-11) BUN 12 (7-18) mg/dl Creatinine 1.15 (0.6-1.2) mg/dl Est Cr Clr Drug Dosing 53.9 ml/min Est GFR ( Amer) 67.5 ml/min Est GFR (Non-Af Amer) 58.2 ml/min BUN/Creatinine Ratio 10.5 (10-20) Glucose 209 H (70-99) mg/dl POC Glucose (70-99) mg/dl Estimat Average Glucose Pending Hemoglobin A1c Pending Calcium 9.5 (8.5-10.1) mg/dl Phosphorus (2.5-4.9) mg/dl Magnesium (1.8-2.4) mg/dl Troponin I 6.310 H* (0-0.045) ng/ml Triglycerides (0-150) mg/dl Cholesterol (0-200) mg/dl LDL Cholesterol Direct mg/dl LDL Cholesterol, Calc mg/dl VLDL Cholesterol, Calc mg/dl HDL Cholesterol mg/dl Cholesterol/HDL Ratio TSH 3.930 (0.300-4.500) uIu/ml Nasal Screen MRSA (PCR) (Negative) COVID-19 Eval Order SARS-CoV-2 (PCR) (Negative) 04/09/21 Range/Units 15:50 WBC 15.47 H (4.8-10.8) K/uL RBC 4.63 (4.2-5.4) M/uL Hgb 14.7 (12.0-16.0) g/dL Hct 42.2 (37-47) % MCV 91.1 (80-100) fL MCH 31.7 (25-34) pg MCHC 34.8 (32-36) g/dL RDW Std Deviation 42.6 (36.4-46.3) fL RDW Coeff of Maria Guadalupe 12.8 (11.5-14.5) % Plt Count 363 (130-400) K/uL MPV 10.5 H (7.4-10.4) fL Immature Gran % (Auto) 0.3 % Neut % (Auto) 75.6 % Lymph % (Auto) 18.7 % [place] % (Auto) 4.5 % Eos % (Auto) 0.6 % Baso % (Auto) 0.3 % Neut # (Auto) 11.69 H (1.4-6.5) K/uL Lymph # (Auto) 2.90 (1.2-3.4) K/uL [place] # (Auto) 0.70 H (0.11-0.59) K/uL Eos # (Auto) 0.10 (0-0.5) K/uL Baso # (Auto) 0.04 (0-0.2) K/uL Immature Gran # (Auto) 0.04 H (0.00-0.02) K/uL Sodium (136-145) mmol/L Potassium (3.5-5.1) mmol/L Chloride (98-107) mmol/L Carbon Dioxide (21-32) mmol/L Anion Gap (3-11) BUN (7-18) mg/dl Creatinine (0.6-1.2) mg/dl Est Cr Clr Drug Dosing ml/min Est GFR ( Amer) ml/min Est GFR (Non-Af Amer) ml/min BUN/Creatinine Ratio (10-20) Glucose (70-99) mg/dl POC Glucose (70-99) mg/dl Estimat Average Glucose Hemoglobin A1c Calcium (8.5-10.1) mg/dl Phosphorus (2.5-4.9) mg/dl Magnesium (1.8-2.4) mg/dl Troponin I (0-0.045) ng/ml Triglycerides (0-150) mg/dl Cholesterol (0-200) mg/dl LDL Cholesterol Direct mg/dl LDL Cholesterol, Calc mg/dl VLDL Cholesterol, Calc mg/dl HDL Cholesterol mg/dl Cholesterol/HDL Ratio TSH (0.300-4.500) uIu/ml Nasal Screen MRSA (PCR) (Negative) COVID-19 Eval Order SARS-CoV-2 (PCR) (Negative) Medications Administered Current Inpatient Medications Acetaminophen (Acetaminophen 325 Mg Tab) 650 mg PO Q4H PRN PRN Reason: MILD Pain (Scale 1,2,3) Stop: 05/09/21 21:04 Acetaminophen (Acetaminophen 325 Mg Tab) 650 mg PO Q4H PRN PRN Reason: pain/fever Stop: 05/09/21 21:44 Albuterol (Albut/Ipratrop 3mg/0.5mg Neb 3 Ml Vial) 3 ml NEB QIDR [facility] Stop: 05/09/21 21:44 Last Admin: 04/09/21 22:55 Dose: Not Given Documented by: Aspirin (Aspirin 81 Mg Ectab) 81 mg PO QAM [facility] Stop: 05/10/21 08:59 Atorvastatin Calcium ([facility]atin 40 Mg Tab) [facility] [place]: 05/10/21 08:59 Dextrose (Dextrose 50% 50 Ml Syringe) 25 - 50 ml IV UD PRN; Protocol PRN Reason: Hypoglycemia Protocol Stop: 05/09/21 21:44 Glucagon (Glucagon For Inj 1 Mg Vial) 1 mg SQ UD PRN; Protocol PRN Reason: Hypoglycemia Protocol Stop: 05/09/21 21:44 Glucose (Glucose 10 Tabs/Tube) 4 - 8 tabs PO UD PRN; Protocol PRN Reason: Hypoglycemia Protocol Stop: 05/09/21 21:44 Glucose (Glucose 40% Gel 15 Gm Tube) 15 - 30 gm PO UD PRN; Protocol PRN Reason: Hypoglycemia Protocol Stop: 05/09/21 21:44 Hydrocodone Bit/Homatropine Methylb (Hydrocodone/Homatropine Syrup 5mg/1.5mg 5ml Udp) 5 ml PO Q8H PRN PRN Reason: Cough Stop: 04/23/21 18:23 Last Admin: 04/09/21 22:32 Dose: 5 ml Documented by: Azithromycin 500 mg/ Dextrose 255 mls @ 125 mls/hr IV Q24H [place] Stop: 04/16/21 21:59 Last Infusion: 04/10/21 00:20 Dose: Infused Documented by: Sodium Phosphate 15 mmol/ (Sodium Chloride) 255 mls @ 100 mls/hr IV 0715 ONE Stop: 04/10/21 09:47 Insulin Aspart (Insulin Aspart 100 Units/Ml 3 Ml Pen) 0 units SC ACHS [place] Stop: 05/09/21 21:44 Last Admin: 04/09/21 22:14 Dose: 6 units Documented by: Lisinopril (Lisinopril 5 Mg Tab) 5 mg PO QAM [facility] Stop: 05/10/21 08:59 Metoprolol Tartrate (Metoprolol Tartrate 25 Mg Tab) 25 mg PO BID [facility] Stop: 05/10/21 08:59 Miscellaneous (Carbohydrates For Hypoglycemia ) 15 - 30 gm PO UD PRN PRN Reason: Hypoglycemia Protocol Stop: 05/09/21 21:44 Miscellaneous (Icu Protocol For Hyperglycemia) 1 ea N/A PRN PRN; Protocol PRN Reason: Hyperglycemia Protocol Stop: 04/11/21 21:44 Ondansetron HCl (Ondansetron Inj 2 Mg/Ml 2 Ml Vial) 4 mg IV Q6H PRN PRN Reason: Nausea And Vomiting Stop: 05/09/21 21:04 Ticagrelor (Ticagrelor 90 Mg Tab) 90 mg PO BID [facility] Stop: 05/10/21 08:59 (1) Asthma exacerbation Asthma persistence: persistent Asthma severity: severe Qualified Code(s): J45.51 - Severe persistent asthma with (acute) exacerbation
[2021-04-10] MEDS: ALBUT/IPRATROP 3MG/0.5MG NEB 3 ML VIAL NEB SCH (07:07)
[2021-04-10] MEDS ORDERED: SODIUM PHOSPHATE 15 MMOL in SODIUM CHLORIDE 0.9% 250 ML IV ONE (07:15)
[2021-04-10] MEDS: INSULIN ASPART 100 UNITS/ML 3 ML PEN SC SCH ×5 (07:35→20:26)
[2021-04-10 07:37] LABS: Estimated Average Glucose 140 mg/dl; Hemoglobin A1C 6.5 % (4.5-5.6)
[2021-04-10] MEDS ORDERED: ALBUT/IPRATROP 3MG/0.5MG NEB 3 ML VIAL NEB PRN (08:22)
[2021-04-10] MEDS: lisinopril 5 MG TAB PO SCH (08:25)
[2021-04-10] MEDS: ASPIRIN 81 MG ECTAB PO SCH (08:25)
[2021-04-10] MEDS: TICAGRELOR 90 MG TAB PO SCH ×2 (08:26→20:27)
[2021-04-10] MEDS: ATORVASTATIN 40 MG TAB PO SCH (08:26)
--- NOTE | 2021-04-10 08:50 | XCELERA ---
[id number]
[2021-04-10] MEDS ORDERED: METOPROLOL TARTRATE 25 MG TAB PO SCH (09:00)
--- NOTE | 2021-04-10 09:00 | Critical Care Progress Note ---
Date of Service April 10, 2021 Assessment & Plan (1) Admitted to intensive care unit: Plan: Reason Critically Ill: 45-year-old female with acute ACS with new left bundle branch block in the setting of stuttering chest pain over the last 36 to 48 hours with elevated troponin requiring emergent cardiac catheterization with findings consistent with 100% occlusion of the mid LAD. Patient is status post drug-eluting stent placement x2 to the LAD. She will require close hemodynamic monitoring status post coronary intervention. NEURO - * CAM ICU: NEGATIVE CARDIAC/VASCULAR - * ACS: * Findings of new LBBB in the setting of stuttering chest pain and shortness of breath with elevated troponin. * Symptoms near completely resolved s/p stenting. * Patient to be reevaluated in the next 24-48 hours for repeat cath to assess/treat Circumflex/OM1 lesion. * ASCVD Rx per cardiology. * Trend troponins. * AM Echo: Reviewed * EKG: sinus tachycardia @ 129 bpm. New LBBB. QTc 474 ms. * Monitor on telemetry. RESPIRATORY - * Hypoxia:: Resolved GI/NUTRITION - * AHA Diet * Hypertriglyceridemia * Hypercholesterolemia RENAL/LYTES - * Hypokalemia:: Resolved * Hypophosphatemia * Replace as needed. - * Pizarro in place -remains in place until after cardiac cath today ENDO - * Hyperglycemia: A1c 6.5 this consistent with a new diagnosis of diabetes * BSGs per unit protocol. ISS --> gtt per unit policy. * art educator consult HEME - * Stable H&H ID - * No concerns for infectious causes at this time. LINES/IV ACCESS - * PIVs x2 * Pizarro DVT PROPHYLAXIS - * Hold s/p supervisor cytogenetic laboratory Rx * SCDs (2) ACS (acute coronary syndrome): (3) S/P PTCA (percutaneous transluminal coronary angioplasty): (4) S/P drug eluting coronary stent placement: (5) Elevated troponin: (6) LBBB (left bundle branch block): Admission and Anticipated Discharge Date Admission Date: April 09, 2021 Subjective Chest discomfort and shortness of breath have resolved still has mild residual left shoulder pain. Reports that she stopped smoking 2 days ago and was previously had gone 12 days without cigarettes, desires to quit smoking also does not follow-up with annual physical this would be a new diagnosis of diabetes not previously on diabetic medication however has strong family history for diabetes. Review of Systems Review of Systems: As per the HPI Physical Exam Physical Exam: General: Alert. nontoxic. Skin: Warm, dry, Head: Atraumatic Ears, nose, mouth and throat: airway patent Cardiovascular: Normal peripheral perfusion Respiratory: no respiratory distress Gastrointestinal: Non distended Musculoskeletal: No deformity Results & Data Results & Data ([facility]) Vital Signs (Past 12 Hours) Vital Signs Temp Pulse Pulse Pulse Resp BP BP 04/10/21 08:00 104 H 04/10/21 07:39 103 H 17 138/87 04/10/21 07:07 105 H 14 04/10/21 06:39 106 H 20 143/96 H 04/10/21 05:00 104 H 17 04/10/21 04:39 105 H 15 04/10/21 03:39 100 H 23 138/93 04/10/21 02:39 104 H 22 159/105 H 04/10/21 01:09 108 H 21 123/94 04/10/21 00:09 110 H 27 H 157/102 H 04/09/21 23:54 37 C 109 H 25 H 158/109 H 04/09/21 23:39 109 H 18 154/109 H 04/09/21 23:24 111 H 29 H 155/112 H 04/09/21 23:09 112 H 25 H 160/106 H 04/09/21 22:45 114 H 27 H 04/09/21 22:39 109 H 22 04/09/21 22:24 108 H 17 162/104 H 04/09/21 22:09 109 H 22 149/122 H 04/09/21 22:01 118 H 98/61 L 04/09/21 21:54 111 H 17 157/105 H 04/09/21 21:37 111 H 23 04/09/21 21:32 36.8 C 110 H 17 148/106 H Pulse Ox 04/10/21 08:00 04/10/21 07:39 97 04/10/21 07:07 98 04/10/21 06:39 97 04/10/21 05:00 99 04/10/21 04:39 99 04/10/21 03:39 98 04/10/21 02:39 99 04/10/21 01:09 97 04/10/21 00:09 94 04/09/21 23:54 90 04/09/21 23:39 96 04/09/21 23:24 92 04/09/21 23:09 94 04/09/21 22:45 95 04/09/21 22:39 96 04/09/21 22:24 97 04/09/21 22:09 97 04/09/21 22:01 04/09/21 21:54 97 04/09/21 21:37 94 04/09/21 21:32 93 Laboratory Results 04/10/21 04/10/21 04/10/21 Range/Units 07:33 03:16 03:11 WBC 23.33 H (4.8-10.8) K/uL RBC 4.65 (4.2-5.4) M/uL Hgb 14.8 (12.0-16.0) g/dL Hct 42.4 (37-47) % MCV 91.2 (80-100) fL MCH 31.8 (25-34) pg MCHC 34.9 (32-36) g/dL RDW Std Deviation 43.3 (36.4-46.3) fL RDW Coeff of Maria Guadalupe 13.1 (11.5-14.5) % Plt Count 332 (130-400) K/uL MPV 10.3 (7.4-10.4) fL Immature Gran % (Auto) % Neut % (Auto) % Lymph % (Auto) % [place] % (Auto) % Eos % (Auto) % Baso % (Auto) % Neut # (Auto) (1.4-6.5) K/uL Lymph # (Auto) (1.2-3.4) K/uL [place] # (Auto) (0.11-0.59) K/uL Eos # (Auto) (0-0.5) K/uL Baso # (Auto) (0-0.2) K/uL Immature Gran # (Auto) (0.00-0.02) K/uL Sodium 138 (136-145) mmol/L Potassium 4.3 D (3.5-5.1) mmol/L Chloride 108 H (98-107) mmol/L Carbon Dioxide 19 L (21-32) mmol/L Anion Gap 22 H (3-11) BUN 13 (7-18) mg/dl Creatinine 0.95 (0.6-1.2) mg/dl Est Cr Clr Drug Dosing 65.3 ml/min Est GFR ( Amer) 85.0 ml/min Est GFR (Non-Af Amer) 73.4 ml/min BUN/Creatinine Ratio 13.6 (10-20) Glucose 232 H (70-99) mg/dl POC Glucose 197 H (70-99) mg/dl Estimat Average Glucose mg/dl Hemoglobin A1c (4.5-5.6) % Calcium 8.0 L D (8.5-10.1) mg/dl Phosphorus 1.6 L (2.5-4.9) mg/dl Magnesium 2.2 (1.8-2.4) mg/dl Troponin I 72.300 H* (0-0.045) ng/ml Triglycerides 323 H (0-150) mg/dl Cholesterol 300 H (0-200) mg/dl LDL Cholesterol Direct 179 mg/dl LDL Cholesterol, Calc 182 mg/dl VLDL Cholesterol, Calc 65 mg/dl HDL Cholesterol 53 mg/dl Cholesterol/HDL Ratio 6 TSH (0.300-4.500) uIu/ml Nasal Screen MRSA (PCR) (Negative) COVID-19 Eval Order SARS-CoV-2 (PCR) (Negative) 04/09/21 04/09/21 04/09/21 Range/Units Unknown 22:07 16:14 WBC (4.8-10.8) K/uL RBC (4.2-5.4) M/uL Hgb (12.0-16.0) g/dL Hct (37-47) % MCV (80-100) fL MCH (25-34) pg MCHC (32-36) g/dL RDW Std Deviation (36.4-46.3) fL RDW Coeff of Maria Guadalupe (11.5-14.5) % Plt Count (130-400) K/uL MPV (7.4-10.4) fL Immature Gran % (Auto) % Neut % (Auto) % Lymph % (Auto) % [place] % (Auto) % Eos % (Auto) % Baso % (Auto) % Neut # (Auto) (1.4-6.5) K/uL Lymph # (Auto) (1.2-3.4) K/uL [place] # (Auto) (0.11-0.59) K/uL Eos # (Auto) (0-0.5) K/uL Baso # (Auto) (0-0.2) K/uL Immature Gran # (Auto) (0.00-0.02) K/uL Sodium (136-145) mmol/L Potassium (3.5-5.1) mmol/L Chloride (98-107) mmol/L Carbon Dioxide (21-32) mmol/L Anion Gap (3-11) BUN (7-18) mg/dl Creatinine (0.6-1.2) mg/dl Est Cr Clr Drug Dosing ml/min Est GFR ( Amer) ml/min Est GFR (Non-Af Amer) ml/min BUN/Creatinine Ratio (10-20) Glucose (70-99) mg/dl POC Glucose 368 H* (70-99) mg/dl Estimat Average Glucose mg/dl Hemoglobin A1c (4.5-5.6) % Calcium (8.5-10.1) mg/dl Phosphorus (2.5-4.9) mg/dl Magnesium (1.8-2.4) mg/dl Troponin I (0-0.045) ng/ml Triglycerides (0-150) mg/dl Cholesterol (0-200) mg/dl LDL Cholesterol Direct mg/dl LDL Cholesterol, Calc mg/dl VLDL Cholesterol, Calc mg/dl HDL Cholesterol mg/dl Cholesterol/HDL Ratio TSH (0.300-4.500) uIu/ml Nasal Screen MRSA (PCR) Negative (Negative) COVID-19 Eval Order SARS-CoV-2 (PCR) NEGATIVE (Negative) 04/09/21 04/09/21 04/09/21 Range/Units 16:14 15:50 15:50 WBC (4.8-10.8) K/uL RBC (4.2-5.4) M/uL Hgb (12.0-16.0) g/dL Hct (37-47) % MCV (80-100) fL MCH (25-34) pg MCHC (32-36) g/dL RDW Std Deviation (36.4-46.3) fL RDW Coeff of Maria Guadalupe (11.5-14.5) % Plt Count (130-400) K/uL MPV (7.4-10.4) fL Immature Gran % (Auto) % Neut % (Auto) % Lymph % (Auto) % [place] % (Auto) % Eos % (Auto) % Baso % (Auto) % Neut # (Auto) (1.4-6.5) K/uL Lymph # (Auto) (1.2-3.4) K/uL [place] # (Auto) (0.11-0.59) K/uL Eos # (Auto) (0-0.5) K/uL Baso # (Auto) (0-0.2) K/uL Immature Gran # (Auto) (0.00-0.02) K/uL Sodium (136-145) mmol/L Potassium (3.5-5.1) mmol/L Chloride (98-107) mmol/L Carbon Dioxide (21-32) mmol/L Anion Gap (3-11) BUN (7-18) mg/dl Creatinine (0.6-1.2) mg/dl Est Cr Clr Drug Dosing ml/min Est GFR ( Amer) ml/min Est GFR (Non-Af Amer) ml/min BUN/Creatinine Ratio (10-20) Glucose (70-99) mg/dl POC Glucose (70-99) mg/dl Estimat Average Glucose 140 mg/dl Hemoglobin A1c 6.5 H (4.5-5.6) % Calcium (8.5-10.1) mg/dl Phosphorus (2.5-4.9) mg/dl Magnesium (1.8-2.4) mg/dl Troponin I 6.310 H* (0-0.045) ng/ml Triglycerides (0-150) mg/dl Cholesterol (0-200) mg/dl LDL Cholesterol Direct mg/dl LDL Cholesterol, Calc mg/dl VLDL Cholesterol, Calc mg/dl HDL Cholesterol mg/dl Cholesterol/HDL Ratio TSH 3.930 (0.300-4.500) uIu/ml Nasal Screen MRSA (PCR) (Negative) COVID-19 Eval Order Covid19 at [facility] SARS-CoV-2 (PCR) (Negative) 04/09/21 04/09/21 Range/Units 15:50 15:50 WBC 15.47 H (4.8-10.8) K/uL RBC 4.63 (4.2-5.4) M/uL Hgb 14.7 (12.0-16.0) g/dL Hct 42.2 (37-47) % MCV 91.1 (80-100) fL MCH 31.7 (25-34) pg MCHC 34.8 (32-36) g/dL RDW Std Deviation 42.6 (36.4-46.3) fL RDW Coeff of Maria Guadalupe 12.8 (11.5-14.5) % Plt Count 363 (130-400) K/uL MPV 10.5 H (7.4-10.4) fL Immature Gran % (Auto) 0.3 % Neut % (Auto) 75.6 % Lymph % (Auto) 18.7 % [place] % (Auto) 4.5 % Eos % (Auto) 0.6 % Baso % (Auto) 0.3 % Neut # (Auto) 11.69 H (1.4-6.5) K/uL Lymph # (Auto) 2.90 (1.2-3.4) K/uL [place] # (Auto) 0.70 H (0.11-0.59) K/uL Eos # (Auto) 0.10 (0-0.5) K/uL Baso # (Auto) 0.04 (0-0.2) K/uL Immature Gran # (Auto) 0.04 H (0.00-0.02) K/uL Sodium 138 (136-145) mmol/L Potassium 3.3 L (3.5-5.1) mmol/L Chloride 106 (98-107) mmol/L Carbon Dioxide 18 L (21-32) mmol/L Anion Gap 14.0 H (3-11) BUN 12 (7-18) mg/dl Creatinine 1.15 (0.6-1.2) mg/dl Est Cr Clr Drug Dosing 53.9 ml/min Est GFR ( Amer) 67.5 ml/min Est GFR (Non-Af Amer) 58.2 ml/min BUN/Creatinine Ratio 10.5 (10-20) Glucose 209 H (70-99) mg/dl POC Glucose (70-99) mg/dl Estimat Average Glucose mg/dl Hemoglobin A1c (4.5-5.6) % Calcium 9.5 (8.5-10.1) mg/dl Phosphorus (2.5-4.9) mg/dl Magnesium (1.8-2.4) mg/dl Troponin I (0-0.045) ng/ml Triglycerides (0-150) mg/dl Cholesterol (0-200) mg/dl LDL Cholesterol Direct mg/dl LDL Cholesterol, Calc mg/dl VLDL Cholesterol, Calc mg/dl HDL Cholesterol mg/dl Cholesterol/HDL Ratio TSH (0.300-4.500) uIu/ml Nasal Screen MRSA (PCR) (Negative) COVID-19 Eval Order SARS-CoV-2 (PCR) (Negative) Coding Level of Care Code 84179 Subseq Hosp Care Lvl 3 Diagnoses Admitted to intensive care unit Z78.9 ACS (acute coronary syndrome) I24.9 S/P PTCA (percutaneous transluminal coronary angioplasty) Z98.61 S/P drug eluting coronary stent placement Z95.5 Elevated troponin R77.8 LBBB (left bundle branch block) I44.7
--- NOTE | 2021-04-10 09:03 | Electrocardiogram Report ---
Test Reason : Blood Pressure : / mmHG Vent. Rate : 129 BPM Atrial Rate : 129 BPM P-R Int : 126 ms QRS Dur : 144 ms QT Int : 324 ms P-R-T Axes : 063 010 190 degrees QTc Int : 474 ms Sinus tachycardia Left atrial enlargement Left bundle branch block Abnormal ECG When compared with ECG of 09-APR-2021 17:42, No significant change was found Confirmed by Maykel Fairchild ([id number]) on 04/10/2021 9:11:33 AM Also confirmed by Maykel Fairchild ([id number]), film or videotape editor Meenakshi Maldonado ([id number]) on 04/10/2021 9:51:35 AM Referred By: REFERRED SELF Confirmed By:Maykel Fairchild
--- NOTE | 2021-04-10 09:11 | Electrocardiogram Report ---
Test Reason : Blood Pressure : / mmHG Vent. Rate : 115 BPM Atrial Rate : 115 BPM P-R Int : 142 ms QRS Dur : 142 ms QT Int : 366 ms P-R-T Axes : 069 007 192 degrees QTc Int : 506 ms Sinus tachycardia Left bundle branch block Abnormal ECG When compared with ECG of 27-APR-2014 07:43, Premature ventricular complexes are no longer Present Vent. rate has increased BY 49 BPM Left bundle branch block is now Present Confirmed by Maykel Fairchild ([id number]) on 04/10/2021 9:03:31 AM Also confirmed by Maykel Fairchild ([id number]), make up editor Meenakshi Maldonado ([id number]) on 04/10/2021 9:49:30 AM Also confirmed by Maykel Fairchild ([id number]), make up editor Meenakshi Maldonado ([id number]) on 04/10/2021 9:51:51 AM Referred By: REFERRED SELF Confirmed By:Maykel Fairchild
[2021-04-10] MEDS ORDERED: LORazepam 0.5 MG TAB PO STA (09:42)
[2021-04-10] MEDS ORDERED: PHARMACY GLYCEMIC MGMT CONSULT PRN (10:05)
[2021-04-10] MEDS ORDERED: NovoLIN-N (NPH) PER UNIT CHARGE SQ ONE (10:15)
--- NOTE | 2021-04-10 10:26 | Electrocardiogram Report ---
Test Reason : Blood Pressure : / mmHG Vent. Rate : 101 BPM Atrial Rate : 101 BPM P-R Int : 162 ms QRS Dur : 138 ms QT Int : 422 ms P-R-T Axes : 074 021 150 degrees QTc Int : 547 ms Sinus tachycardia Left bundle branch block Abnormal ECG When compared with ECG of 09-APR-2021 19:47, No significant change Confirmed by Maykel Fairchild ([id number]) on 04/10/2021 10:26:10 AM Referred By: REFERRED SELF Confirmed By:Maykel Fairchild
--- NOTE | 2021-04-10 10:52 | XRay Report ---
XR chest 1V portable HISTORY: Dyspnea. COMPARISON: Chest 04/09/2021. FINDINGS: No pneumothorax. Stable blunting of the right lateral costophrenic sulcus. This could repre sent a trace right pleural effusion. The heart is normal in size. Mild diffuse interstitial thickenin g, right greater than left. This is similar to the prior study. IMPRESSION: Mild diffuse interstitial thickening and a trace right pleural effusion. This could represent asymmet judy congestive change or an atypical pneumonitis. This is similar to the prior study. ACT 112: Negative or not required by law. Electronically signed by: Hair Lozoya M.D. 04/10/2021 10:51 AM
--- NOTE | 2021-04-10 11:33 | Pharmacy Report ---
Pharmacy Glycemic Short Note 2 - Date of Service April 10, 2021 - Glycemic Short BSG Results (Last 24 hours): 04/09/21 04/09/21 04/10/21 15:50 22:07 03:11 Glucose 209 H 232 H POC Glucose 368 H* 04/10/21 07:33 Glucose POC Glucose 197 H OUTPATIENT ANTIDIABETIC REGIMEN: * N/A * A1c = 6.5% 04/09/21 ASSESSMENT: * Patient admitted for high risk NSTEMI yesterday and is now s/p MICHEL x 2 LAD performed 04/09 * She was initially being treated for asthma exacerbation in the ED and received two doses IV Solu-Medrol likely leading to exacerbation of existing hyperglycemia. The effects of these steroid doses should be dissipating. * Patient may return to the lab intern today for LCX procedure. No breakfast consumed this AM * Will give small NPH dose this AM for elevated fasting BSG in setting of NPO and prior steroids, will reevaluate needs tomorrow AM * Novolog doses will be adjusted to wt-based, "moderate" stress level PLAN FOR INPATIENT GLYCEMIC CONTROL: * Basal insulin * NPH 5 units SQ x 1 this AM * Bolus insulin * NovoLog per scale ACHS or Q6hrs while NPO * Goal Range: Low 100 mg/dL - High 140 mg/dL * Correction Factor: 30 mg/dL/unit * Nutritional / Prandial insulin per carb ratio of 1 unit per 12 grams CHO consumed PLAN FOR DISCHARGE: * A1c 6.5% is consistent w/ dx of DM. Consideration should be made to dietary and lifestyle modifications. Metformin monotherapy could also be considered on discharge if no contraindications present.
[2021-04-10] MEDS: SPIRONOLACTONE 25 MG TAB PO SCH (12:40)
--- NOTE | 2021-04-10 12:40 | Cardiology Progress Note ---
Date of Service April 10, 2021 Assessment & Plan (1) ACS (acute coronary syndrome): Plan: --post PCI of acute mid LAD occlusion 04/09/21 (2 overlapping MICHEL) 2. Chronic multivessel CAD --subtotal mid circumflex occlusion with right to left collaterals --70% superior branch of OM1 --Small nondominant RCA with moderate diffuse disease 3. Severe LV dysfunction (EF 20-25%) 4. Tobacco use 5. Dyslipidemia 6. Hypertension 7. Sinus tachycardia 8. Left shoulder pain Pt discussed with Dr. Ferrara Patient with ACS status status post mid LAD PCI yesterday. Otherwise with chronic appearing circumflex occlusion with collaterals. She is chest pain free. Continued shoulder pain possibly musculoskeletal. Troponin peaked at 72. No plans for additional intervention at this time. No apparent right radial access site complication. Echo with severe LV dysfunction. On exam appears well perfused without significant congestion. Diuresed 3.8 L overnight (net negative 1.4L). Breathing comfortably on 1L O2 via nasal cannula. Will hold off on additional diuretics at this point, monitor volume status closely. Recommend guideline based medical therapy. Recommend the following: --DAPT for minimum one year --high intensity statin, goal LDL <70 --Increase metoprolol tartrate to 50 mg bid, will transition to metoprolol succinate at discharge --Start spironolactone 25 mg daily --Continue lisinopril 5 mg daily --Will titrate beta nita, DONNY inhibitor as able --Consult cardiac rehab Admission and Anticipated Discharge Date Admission Date: April 09, 2021 Supervising Physician Co-Signing Physician Notes Agree with assessment and plan as outlined above. Comfortable, minimal congestion on exam. Continued titration of metoprolol/DONNY/spironolactone. Recommend LifeVest. Discussed with patient and significant other. They are agreeable. Will arrange. Ok with transfer to telemetry Subjective Patient reports feeling significantly better today. She is tired, had difficulty sleeping due to left shoulder cramping which is positional. No recurrent chest pain since PCI. No orthopnea or PND overnight. Breathing is much better, currently lying flat comfortably on 1L supplemental O2 via NC. No palpitations. No edema. No issues at right radial access site. Output 3.8L overnight, net negative 1.4L. Tele reviewed- sinus tach with PVCs Echo this AM with severely reduced LV systolic function, EF 20-25%. Apical akinesis. Mid anterior/anteroseptum/septum/inferior akinesis. Hypokinesis of basal septum/inferior segments and mid lateral/inferolateral segments. Normal RV function. Mild MR. Borderline pulmonary hypertension, est PASV 40 mmHg. Dilated IVC. Review of Systems Review of Systems: All systems reviewed & are unremarkable except as noted in HPI & below Physical Exam Physical Exam: General: No acute distress, comfortable. HEENT: Head is normal. PERRLA. EOMI. Sclerae anicteric. Neck: Normal carotid upstrokes, no bruits. No appreciable JVD. Lungs: Clear to auscultation bilaterally without rales, rhonchi or wheezes. Cardiac: Tachycardic. Regular. S1-S2 normal. No appreciable murmur, gallop or rub. Abdomen: Soft and nontender. Bowel sounds normal. No mass or organomegaly. No abdominal bruit. Extremities/vascular: -- Well perfused. No peripheral edema. --Radial, DP and PT pulses 2+ bilaterally --Right radial access site without hematoma or ecchymosis. Neurovascularly intact Skin: No rash or abnormal lesions. Normal turgor. Neurologic: Nonfocal Psychiatric: Affect appropriate. Alert and oriented. Results & Data ([facility]) Vital Signs (Past 12 Hours) Vital Signs Temp Pulse Pulse Resp BP Pulse Ox 04/10/21 11:39 99 H 18 119/82 96 04/10/21 10:39 90 19 139/90 96 04/10/21 09:19 37.0 C 04/10/21 09:06 98 H 13 138/87 96 04/10/21 08:00 104 H 04/10/21 07:39 103 H 17 138/87 97 04/10/21 07:07 105 H 14 98 04/10/21 06:39 106 H 20 143/96 H 97 04/10/21 05:00 104 H 17 99 04/10/21 04:39 105 H 15 99 04/10/21 03:39 100 H 23 138/93 98 04/10/21 02:39 104 H 22 159/105 H 99 04/10/21 01:09 108 H 21 123/94 97 PG Care Time/CCT Total # of Minutes Spent Total Time Spent with Patient: Total time spent is greater than 50% in coordination of care (as documented) at patient's floor/unit and/or counseling patient: Coding Level of Care Code 39348 Subseq Hosp Care Lvl 3 Diagnoses ACS (acute coronary syndrome) I24.9
[2021-04-10] MEDS ORDERED: METOPROLOL TARTRATE 25 MG TAB PO ONE (15:45)
[2021-04-10] MEDS: METOPROLOL TARTRATE 50 MG TAB PO SCH (20:30)
[2021-04-11 04:49] LABS: Hematocrit (blood only) 40.2 % (37-47); Hemoglobin 13.6 g/dL (12.0-16.0); Mean Corpuscular Hemoglobin 31.3 pg (25-34); Mean Corpuscular Hgb Conc 33.8 g/dL (32-36); Mean Corpuscular Volume 92.4 fL (80-100); Mean Platelet Volume 10.4 fL (7.4-10.4); Platelet Count 273 K/uL (130-400); RDW Coefficient of Variation 13.2 % (11.5-14.5); RDW Standard Deviation 44.6 fL (36.4-46.3); Red Blood Count 4.35 M/uL (4.2-5.4)
[2021-04-11 05:09] LABS: BUN Creatinine Ratio 18.2 (10-20); Calcium 8.2 mg/dl (8.5-10.1); Creatinine Clr Calc Pharmacy 85.6 ml/min; Est GFR (African American) 116.9 ml/min; Est GFR (Non-African American) 100.9 ml/min; Magnesium 2.3 mg/dl (1.8-2.4); Potassium 4.1 mmol/L (3.5-5.1)
[2021-04-11 05:26] LABS: Phosphorus 1.3 mg/dl (2.5-4.9)
[2021-04-11] MEDS ORDERED: POTASSIUM PHOS 3 MMOL/1 ML INFUSION IV STA (05:31)
[2021-04-11] MEDS ORDERED: POTASSIUM PHOSPHATE 21 MMOL in SODIUM CHLORIDE 0.9% 500 ML IV ONE (06:15)
[2021-04-11] MEDS: ATORVASTATIN 40 MG TAB PO SCH (08:30)
[2021-04-11] MEDS ORDERED: SODIUM PHOSPHATE 3 MMOL/1 ML INFUSION IV STA (08:30)
[2021-04-11] MEDS: SPIRONOLACTONE 25 MG TAB PO SCH (08:30)
[2021-04-11] MEDS: TICAGRELOR 90 MG TAB PO SCH ×2 (08:30→21:13)
[2021-04-11] MEDS: lisinopril 5 MG TAB PO SCH (08:30)
[2021-04-11] MEDS: METOPROLOL TARTRATE 50 MG TAB PO SCH ×2 (08:30→21:13)
[2021-04-11] MEDS: ASPIRIN 81 MG ECTAB PO SCH (08:30)
--- NOTE | 2021-04-11 08:35 | Hospitalist Progress Note ---
Date of Service April 11, 2021 Assessment & Plan (1) LBBB (left bundle branch block): (2) Elevated troponin: Plan: ACS Severe LV dysfunction Acute respiratory failure with hypoxia, resolved -new LBBB, troponin 6.3 -Dr. Ferrara notified and heart alert called -Pt is now s/p cardiac cath (04/09/2021) Findings: LM -normal caliber, no significant disease LAD -medium caliber, acute 100% earlymid LAD occlusion just after takeoff of small D1. After flow reestablished diffuse mid segment disease. Circumflex -dominant, medium caliber, subtotal mid circumflex occlusion. Distal circumflex/left PDA fill partially via right to left collaterals. Large bifurcating OM1 with 70% stenosis in superior branch. RCA -small, nondominant, moderate diffuse disease. Right to left collaterals to distal circumflex. Faint right to left collaterals to apical LAD. Summary: 1. Acute 100% mid LAD occlusion 2. Chronic multivessel CAD -Subtotal mid circumflex occlusion with right to left collaterals 70% stenosis in superior branch of OM1 Small nondominant RCA with moderate diffuse disease 3. Elevated intracardiac filling pressure 4. Successful PCI of mid LAD with 2 overlapping drug-eluting stents (2.5 x 30, 2.25 x 12 [place]; postdilated with 3.5 NC). -Found to have 100% mid LAD occlusion, status post 2 MICHEL Started on dual antiplatelet therapy on which patient should be for at least 1 year Trend troponin until peak Obtain echocardiogram beta-nita, DONNY inhibitor as BP allows Patient started on high-dose statin Possible PCI subtotal circumflex occlusion later this hospitalization Echo -normal LV size and wall thickness. LVEF 20 to 25%. Apical akinesis. Mild anterior/anteroseptal/septum/inferior akinesis. Hypokinetic basal septum/inferior segments and mid lateral/inferolateral segments. Normal RV size and function. Mild mitral regurg. Borderline pulmonary hypertension est PASP 40 mmHg. Dilated IVC. est RA 15 mmHg. Compared with prior study on April 27, 2014 severe LV dysfunction, wall motion abnormalities are new Will need LifeVest on discharge. 04/11 -yesterday patient was initially on 10 L oxygen mask in the morning, then down to 1 L of nasal cannula when I saw her, today April 11, patient is breathing comfortably on room air Clinically much improved. Awaiting LifeVest. Will downgrade to PCU and will continue to closely monitor, possibly discharge tomorrow. Continue to current DAPT with aspirin, ticagrelor Continue current statin, lisinopril, spironolactone Continue current metoprololtransition to metoprolol succinate on discharge Follow-up with cardiology in 2 weeks. Tobacco use -Provided smoking cessation counseling, patient determined to quit smoking (3) Asthma exacerbation: Plan: -IV steroids, nebs on admission -empiric azithro on admission -CTA ordered by ED however d/c'ed d/t dye load from cardiac cath -Given above events, likely patient was not in asthma exacerbation (4) Hypothyroidism: Plan: -patient reports history of, self stopped levothyroxine a few years ago -TSH 3.9 -follow up as outpt (5) DVT prophylaxis: Plan: -SCDs for now Admission and Anticipated Discharge Date Admission Date: April 09, 2021 Subjective Patient seen in follow-up of NSTEMI, chest garnett, status post cardiac cath and placed 2 stents last evening Currently patient states that she feels again like herself, and she can finally breathe, she is on RA She is speaking in full sentences without difficulty Denies any more chest pain or arm pain No fevers chills, nausea vomiting, abdominal pain or lower extremity edema Provideded smoking cessation counseling, patient determined to quit smoking Review of Systems Review of Systems: ROS per HPI, all other systems reviewed and negative Constitutional: no fever and no chills Respiratory: no cough and no dyspnea Cardiovascular: no chest pain and no palpitations Gastrointestinal: no abdominal pain, no nausea and no vomiting Physical Exam Constitutional: WD/WN, vitals as above Eyes: PERRL, conjunctivae normal, anicteric sclerae ENMT: external ear and nose normal, oropharynx normal Neck: trachea midline, no thyromegaly Respiratory: normal respiratory effort, lungs clear to auscultation Auscultation: no crackles, no rhonchi and no wheezes Cardiovascular: RRR, no murmur, no edema Gastrointestinal (Abdomen): normal bowel sounds, soft, nontender, no hepatosplenomegaly Musculoskeletal: no cyanosis or clubbing, extremities motor strength 5/5 Skin: no rashes, warm and dry Neurologic: PERRL, EOMI, accommodation nl, no face palsy, no dysarthria Psychiatric: Orientation: alert and oriented x 3 Mood: + anxious mood Results & Data Results & Data ([facility]) Vital Signs (Past 12 Hours) Vital Signs Temp Pulse Resp BP Pulse Ox 04/11/21 06:42 83 19 105/70 97 04/11/21 06:00 36.5 C 04/11/21 05:08 80 20 110/79 95 04/11/21 04:08 76 22 104/68 94 04/11/21 03:08 78 18 104/66 95 04/11/21 02:08 85 18 108/73 96 04/11/21 01:08 72 24 92/67 L 93 04/11/21 00:08 82 20 96/70 L 93 04/11/21 00:07 36.5 C 04/10/21 23:36 76 04/10/21 23:08 77 23 89/56 L 97 04/10/21 22:08 74 23 97/70 L 92 04/10/21 20:39 89 22 112/76 94 Laboratory Results 04/11/21 04/11/21 04/11/21 Range/Units 07:43 04:40 04:40 WBC 21.00 H (4.8-10.8) K/uL RBC 4.35 (4.2-5.4) M/uL Hgb 13.6 (12.0-16.0) g/dL Hct 40.2 (37-47) % MCV 92.4 (80-100) fL MCH 31.3 (25-34) pg MCHC 33.8 (32-36) g/dL RDW Std Deviation 44.6 (36.4-46.3) fL RDW Coeff of Maria Guadalupe 13.2 (11.5-14.5) % Plt Count 273 (130-400) K/uL MPV 10.4 (7.4-10.4) fL Activ Coag Time Kaolin (94-140) SECONDS Sodium 137 (136-145) mmol/L Potassium 4.1 (3.5-5.1) mmol/L Chloride 108 H (98-107) mmol/L Carbon Dioxide 23 (21-32) mmol/L Anion Gap 6.0 (3-11) BUN 13 (7-18) mg/dl Creatinine 0.73 (0.6-1.2) mg/dl Est Cr Clr Drug Dosing 85.6 ml/min Est GFR ( Amer) 116.9 ml/min Est GFR (Non-Af Amer) 100.9 ml/min BUN/Creatinine Ratio 18.2 (10-20) Glucose 153 H (70-99) mg/dl POC Glucose 150 H (70-99) mg/dl Calcium 8.2 L (8.5-10.1) mg/dl Phosphorus 1.3 L* (2.5-4.9) mg/dl Magnesium 2.3 (1.8-2.4) mg/dl Troponin I (0-0.045) ng/ml 04/10/21 04/10/21 04/10/21 Range/Units 20:17 16:30 11:56 WBC (4.8-10.8) K/uL RBC (4.2-5.4) M/uL Hgb (12.0-16.0) g/dL Hct (37-47) % MCV (80-100) fL MCH (25-34) pg MCHC (32-36) g/dL RDW Std Deviation (36.4-46.3) fL RDW Coeff of Maria Guadalupe (11.5-14.5) % Plt Count (130-400) K/uL MPV (7.4-10.4) fL Activ Coag Time Kaolin (94-140) SECONDS Sodium (136-145) mmol/L Potassium (3.5-5.1) mmol/L Chloride (98-107) mmol/L Carbon Dioxide (21-32) mmol/L Anion Gap (3-11) BUN (7-18) mg/dl Creatinine (0.6-1.2) mg/dl Est Cr Clr Drug Dosing ml/min Est GFR ( Amer) ml/min Est GFR (Non-Af Amer) ml/min BUN/Creatinine Ratio (10-20) Glucose (70-99) mg/dl POC Glucose 147 H 132 H 171 H (70-99) mg/dl Calcium (8.5-10.1) mg/dl Phosphorus (2.5-4.9) mg/dl Magnesium (1.8-2.4) mg/dl Troponin I (0-0.045) ng/ml 04/10/21 04/09/21 Range/Units 08:57 20:29 WBC (4.8-10.8) K/uL RBC (4.2-5.4) M/uL Hgb (12.0-16.0) g/dL Hct (37-47) % MCV (80-100) fL MCH (25-34) pg MCHC (32-36) g/dL RDW Std Deviation (36.4-46.3) fL RDW Coeff of Maria Guadalupe (11.5-14.5) % Plt Count (130-400) K/uL MPV (7.4-10.4) fL Activ Coag Time Kaolin 246 H (94-140) SECONDS Sodium (136-145) mmol/L Potassium (3.5-5.1) mmol/L Chloride (98-107) mmol/L Carbon Dioxide (21-32) mmol/L Anion Gap (3-11) BUN (7-18) mg/dl Creatinine (0.6-1.2) mg/dl Est Cr Clr Drug Dosing ml/min Est GFR ( Amer) ml/min Est GFR (Non-Af Amer) ml/min BUN/Creatinine Ratio (10-20) Glucose (70-99) mg/dl POC Glucose (70-99) mg/dl Calcium (8.5-10.1) mg/dl Phosphorus (2.5-4.9) mg/dl Magnesium (1.8-2.4) mg/dl Troponin I 56.500 H* (0-0.045) ng/ml Medications Administered Current Inpatient Medications Acetaminophen (Acetaminophen 325 Mg Tab) 650 mg PO Q4H PRN PRN Reason: pain/fever Stop: 05/09/21 21:44 Last Admin: 04/10/21 20:25 Dose: 650 mg Documented by: Albuterol (Albut/Ipratrop 3mg/0.5mg Neb 3 Ml Vial) 3 ml NEB QIDR PRN PRN Reason: Shortness Of Breath Or Wheezing Stop: 05/09/21 21:44 Aspirin (Aspirin 81 Mg Ectab) 81 mg PO [facility] Stop: 05/10/21 08:59 Last Admin: 04/10/21 08:25 Dose: 81 mg Documented by: Atorvastatin Calcium (Atorvastatin 40 Mg Tab) 80 mg PO [facility] Stop: 05/10/21 08:59 Last Admin: 04/10/21 08:26 Dose: 80 mg Documented by: Dextrose (Dextrose 50% 50 Ml Syringe) 25 - 50 ml IV UD PRN; Protocol PRN Reason: Hypoglycemia Protocol Stop: 05/09/21 21:44 Glucagon (Glucagon For Inj 1 Mg Vial) 1 mg SQ UD PRN; Protocol PRN Reason: Hypoglycemia Protocol Stop: 05/09/21 21:44 Glucose (Glucose 10 Tabs/Tube) 4 - 8 tabs PO UD PRN; Protocol PRN Reason: Hypoglycemia Protocol Stop: 05/09/21 21:44 Glucose (Glucose 40% Gel 15 Gm Tube) 15 - 30 gm PO UD PRN; Protocol PRN Reason: Hypoglycemia Protocol Stop: 05/09/21 21:44 Hydrocodone Bit/Homatropine Methylb (Hydrocodone/Homatropine Syrup 5mg/1.5mg 5ml Udp) 5 ml PO Q8H PRN PRN Reason: Cough Stop: 04/23/21 18:23 Last Admin: 04/09/21 22:32 Dose: 5 ml Documented by: Potassium Phosphate 21 mmol/ (Sodium Chloride) 507 mls @ 88 mls/hr IV ONE ONE Stop: 04/11/21 12:00 Last Admin: 04/11/21 06:35 Dose: 88 mls/hr Documented by: Insulin Aspart (Insulin Aspart 100 Units/Ml 3 Ml Pen) 0 units SC ACHS [facility] Stop: 05/09/21 21:44 Last Admin: 04/10/21 20:26 Dose: 1 units Documented by: Lisinopril (Lisinopril 5 Mg Tab) 5 mg PO QAM [place] Stop: 05/10/21 08:59 Last Admin: 04/10/21 08:25 Dose: 5 mg Documented by: Metoprolol Tartrate (Metoprolol Tartrate 50 Mg Tab) 50 mg PO BID [place] Stop: 05/10/21 20:59 Last Admin: 04/10/21 20:30 Dose: 50 mg Documented by: Miscellaneous (Carbohydrates For Hypoglycemia ) 15 - 30 gm PO UD PRN PRN Reason: Hypoglycemia Protocol Stop: 05/09/21 21:44 Miscellaneous Information (Pharmacy Glycemic Mgmt Consult) 1 ea N/A UD PRN PRN Reason: Consult Stop: 05/10/21 10:04 Ondansetron HCl (Ondansetron Inj 2 Mg/Ml 2 Ml Vial) 4 mg IV Q6H PRN PRN Reason: Nausea And Vomiting Stop: 05/09/21 21:04 Potassium Phosphate (Pot Phosphate Monobasic W/ Sod Tab) 2 tab PO QID [facility] Stop: 05/11/21 08:59 Spironolactone (Spironolactone 25 Mg Tab) 25 mg PO QAM [facility] Stop: 05/10/21 12:14 Last Admin: 04/10/21 12:40 Dose: 25 mg Documented by: Ticagrelor (Ticagrelor 90 Mg Tab) 90 mg PO BID [facility] Stop: 05/10/21 08:59 Last Admin: 04/10/21 20:27 Dose: 90 mg Documented by: (1) Asthma exacerbation Asthma persistence: persistent Asthma severity: severe Qualified Code(s): J45.51 - Severe persistent asthma with (acute) exacerbation
[2021-04-11] MEDS: INSULIN ASPART 100 UNITS/ML 3 ML PEN SC SCH ×4 (08:36→21:12)
--- NOTE | 2021-04-11 09:39 | Critical Care Progress Note ---
Date of Service April 11, 2021 Assessment & Plan (1) Admitted to intensive care unit: Plan: Reason Critically Ill: 45-year-old female with acute ACS with new left bundle branch block in the setting of stuttering chest pain over the last 36 to 48 hours with elevated troponin requiring emergent cardiac catheterization with findings consistent with 100% occlusion of the mid LAD. Patient is status post drug-eluting stent placement x2 to the LAD. She will require close hemodynamic monitoring status post coronary intervention. NEURO - * CAM ICU: NEGATIVE CARDIAC/VASCULAR - * ACS: * Reviewed cardiology recommendations * Awaiting LifeVest RESPIRATORY - * Hypoxia:: Resolved GI/NUTRITION - * AHA Diet * Hypertriglyceridemia * Hypercholesterolemia * On statin on DONNY on beta-nita * Add LFTs for baseline evaluation given she is now on statin RENAL/LYTES - * Hypokalemia:: Resolved * Hypophosphatemia * Replace as needed. - * Pizarro has been removed ENDO - * Hyperglycemia: A1c 6.5 this consistent with a new diagnosis of diabetes * BSGs per unit protocol. ISS --> gtt per unit policy. 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 LINES/IV ACCESS - * PIVs x2 * Pizarro DVT PROPHYLAXIS - * Ambulate around the room * SCDs Stable for downgrade out of ICU or discharge if okay by cardiology after LifeVest placement (2) ACS (acute coronary syndrome): (3) S/P PTCA (percutaneous transluminal coronary angioplasty): (4) S/P drug eluting coronary stent placement: (5) Elevated troponin: (6) LBBB (left bundle branch block): Admission and Anticipated Discharge Date Admission Date: April 09, 2021 Subjective No overnight events Review of Systems Review of Systems: No exertional dyspnea Physical Exam Physical Exam: General: Alert. nontoxic. Skin: Warm, dry, Head: Atraumatic Ears, nose, mouth and throat: airway patent Cardiovascular: Normal peripheral perfusion Respiratory: no respiratory distress Gastrointestinal: Non distended Musculoskeletal: No deformity Results & Data Results & Data ([facility]) Vital Signs (Past 12 Hours) Vital Signs Temp Pulse Resp BP Pulse Ox 04/11/21 07:42 36.6 C 85 20 116/73 96 04/11/21 06:42 83 19 105/70 97 04/11/21 06:00 36.5 C 07/27/21 05:08 80 20 110/79 95 04/11/21 04:08 76 22 104/68 94 04/11/21 03:08 78 18 104/66 95 04/11/21 02:08 85 18 108/73 96 04/11/21 01:08 72 24 92/67 L 93 04/11/21 00:08 82 20 96/70 L 93 04/11/21 00:07 36.5 C 04/10/21 23:36 76 04/10/21 23:08 77 23 89/56 L 97 04/10/21 22:08 74 23 97/70 L 92 Coding Level of Care Code 14368 Subseq Hosp Care Lvl 3 Diagnoses Admitted to intensive care unit Z78.9 ACS (acute coronary syndrome) I24.9 S/P PTCA (percutaneous transluminal coronary angioplasty) Z98.61 S/P drug eluting coronary stent placement Z95.5 Elevated troponin R77.8 LBBB (left bundle branch block) I44.7
[2021-04-11 10:37] LABS: Albumin Level 3.3 gm/dl (3.4-5.0); Bilirubin Direct 0.1 mg/dl (0-0.2); Bilirubin,Total 1.2 mg/dl (0.2-1); Total Protein 7.5 gm/dl (6.4-8.2)
--- NOTE | 2021-04-11 10:51 | Cardiology Progress Note ---
Date of Service April 11, 2021 Assessment & Plan (1) ACS (acute coronary syndrome): Plan: --post PCI of acute mid LAD occlusion 04/09/21 (2 overlapping MICHEL) 2. Chronic multivessel CAD --subtotal mid circumflex occlusion with right to left collaterals --70% superior branch of OM1 --Small nondominant RCA with moderate diffuse disease 3. Severe LV dysfunction (EF 20-25%) 4. Tobacco use 5. Dyslipidemia 6. Hypertension 7. Sinus tachycardia 8. Left shoulder pain Stable from a cardiac standpoint. No recurrent chest pain. Left shoulder symptoms resolved. No evidence of heart failure on exam. Will need LifeVest on discharge. Up walking halls today. If asymptomatic and LifeVest arranged could potentially go home later this afternoon if not tomorrow morning. Continue to current DAPT with aspirin, ticagrelor Continue current statin, lisinopril, spironolactone Continue current metoprololtransition to metoprolol succinate on discharge Follow-up with me in 2 weeks. Admission and Anticipated Discharge Date Admission Date: April 09, 2021 Subjective Reports feeling much better today. Denies any chest pain. Breathing more comfortably. Was able to sleep some last night. Left shoulder pain improved. No other new concerns. Telemetry reviewedno events. Review of Systems Review of Systems: All systems reviewed & are unremarkable except as noted in HPI & below Physical Exam Physical Exam: General: Comfortable HEENT: Sclerae anicteric Lungs: Lungs clear Cardiac: Regular, no murmurs Abdomen: Soft, nontender Extremities: Warm, well perfused, no edema. 2+ radial pulses Skin: No rashes or lesions. Neuro: Nonfocal Psych: Alert orient x3 Results & Data ([facility]) Vital Signs (Past 12 Hours) Vital Signs Temp Pulse Resp BP Pulse Ox 04/11/21 09:42 80 26 H 101/71 97 04/11/21 08:42 87 21 106/72 97 04/11/21 08:00 90 04/11/21 07:42 97.9 F 85 20 116/73 96 04/11/21 06:42 83 19 105/70 97 04/11/21 06:00 97.7 F 04/11/21 05:08 80 20 110/79 95 04/11/21 04:08 76 22 104/68 94 04/11/21 03:08 78 18 104/66 95 07/27/21 02:08 85 18 108/73 96 04/11/21 01:08 72 24 92/67 L 93 04/11/21 00:08 82 20 96/70 L 93 04/11/21 00:07 97.7 F 04/10/21 23:36 76 04/10/21 23:08 77 23 89/56 L 97 PG Care Time/CCT Total # of Minutes Spent Total Time Spent with Patient: Total time spent is greater than 50% in coordination of care (as documented) at patient's floor/unit and/or counseling patient: Coding Level of Care Code 60499 Subseq Hosp Care Lvl 3 Diagnoses ACS (acute coronary syndrome) I24.9
[2021-04-11] MEDS: POT PHOSPHATE MONOBASIC W/ SOD TAB PO SCH ×4 (11:22→21:13)
[2021-04-12 05:32] LABS: Hematocrit (blood only) 41.2 % (37-47); Mean Corpuscular Hemoglobin 31.5 pg (25-34); Mean Corpuscular Volume 92.8 fL (80-100); Mean Platelet Volume 10.4 fL (7.4-10.4); Platelet Count 289 K/uL (130-400); RDW Coefficient of Variation 13.3 % (11.5-14.5); RDW Standard Deviation 45.5 fL (36.4-46.3); Red Blood Count 4.44 M/uL (4.2-5.4); White Blood Count 15.53 K/uL (4.8-10.8)
[2021-04-12 05:56] LABS: Calcium 8.5 mg/dl (8.5-10.1); Creatinine Clr Calc Pharmacy 102.4 ml/min; Est GFR (African American) 128.7 ml/min; Magnesium 2.2 mg/dl (1.8-2.4); Potassium 3.9 mmol/L (3.5-5.1)
[2021-04-12 06:00] LABS: Phosphorus 2.7 mg/dl (2.5-4.9)
[2021-04-12] MEDS: INSULIN ASPART 100 UNITS/ML 3 ML PEN SC SCH ×2 (07:49→11:48)
[2021-04-12] MEDS: SPIRONOLACTONE 25 MG TAB PO SCH (08:04)
[2021-04-12] MEDS: lisinopril 5 MG TAB PO SCH (08:04)
[2021-04-12] MEDS: POT PHOSPHATE MONOBASIC W/ SOD TAB PO SCH ×2 (08:04→12:45)
[2021-04-12] MEDS: METOPROLOL TARTRATE 50 MG TAB PO SCH (08:04)
[2021-04-12] MEDS: TICAGRELOR 90 MG TAB PO SCH (08:04)
[2021-04-12] MEDS: ASPIRIN 81 MG ECTAB PO SCH (08:04)
[2021-04-12] MEDS: ATORVASTATIN 40 MG TAB PO SCH (08:05)
--- NOTE | 2021-04-12 12:44 | Cardiology Progress Note ---
Date of Service April 12, 2021 Assessment & Plan (1) ACS (acute coronary syndrome): Plan: --post PCI of acute mid LAD occlusion 04/09/21 (2 overlapping MICHEL) 2. Chronic multivessel CAD --subtotal mid circumflex occlusion with right to left collaterals --70% superior branch of OM1 --Small nondominant RCA with moderate diffuse disease 3. Severe LV dysfunction (EF 20-25%) --LifeVest in place 4. Tobacco use 5. Dyslipidemia 6. Hypertension 7. Sinus tachycardia 8. Left shoulder pain Patient is stable from a cardiac standpoint. Has been walking halls with no recurrent chest pain/dyspnea. Shoulder pain resolved. On exam well perfused without signs of heart failure. LifeVest in place. From cardiac standpoint OK to discharge today. Continue to current DAPT with aspirin, ticagrelor Continue current statin, lisinopril, spironolactone Continue current metoprololtransition to metoprolol succinate on discharge Will arrange followup at our office in 2 weeks. Admission and Anticipated Discharge Date Admission Date: April 09, 2021 Subjective Pt feeling well, ready to go home. Up walking today without chest pain or dyspnea. She has her LifeVest. Telemetry reviewed-- no events Physical Exam Physical Exam: General: Comfortable HEENT: Sclerae anicteric Lungs: Lungs clear Cardiac: Regular, no murmurs Abdomen: Soft, nontender Extremities: Warm, well perfused, no edema. 2+ radial pulses Skin: No rashes or lesions. Neuro: Nonfocal Psych: Alert orient x3 Results & Data ([facility]) Vital Signs (Past 12 Hours) Vital Signs Temp Pulse Pulse Pulse Resp BP BP 04/12/21 11:53 36.8 C 76 16 113/73 04/12/21 08:12 36.6 C 74 16 116/86 04/12/21 08:00 75 04/12/21 04:59 36.9 C 75 16 111/68 Pulse Ox 04/12/21 11:53 97 04/12/21 08:12 95 04/12/21 08:00 04/12/21 04:59 98 PG Care Time/CCT Total # of Minutes Spent Total Time Spent with Patient: Total time spent is greater than 50% in coordination of care (as documented) at patient's floor/unit and/or counseling patient: Coding Level of Care Code 89730 Subseq Hosp Care Lvl 2 Diagnoses ACS (acute coronary syndrome) I24.9
--- NOTE | 2021-04-12 13:34 | Hospitalist Progress Note ---
Date of Service April 12, 2021 Assessment & Plan (1) LBBB (left bundle branch block): (2) Elevated troponin: Plan: NSTEMI Ischemic cardiomyopathy Acute respiratory failure with hypoxia--resolved New LBBB S/P Cardiac Cath:Acute 100% mid LAD occlusion, Chronic multivessel CAD, Subtotal mid circumflex occlusion with right to left collaterals, 70% stenosis in superior branch of OM1, Small nondominant RCA with moderate diffuse disease, Elevated intracardiac filling pressure ---Successful PCI of mid LAD with 2 overlapping drug-eluting stents (2.5 x 30, 2.25 x 12 [place]; postdilated with 3.5 NC). --ECHO:normal LV size and wall thickness. LVEF 20 to 25%. Apical akinesis. Mild anterior/anteroseptal/septum/inferior akinesis. Hypokinetic basal septum/inferior segments and mid lateral/inferolateral segments. Normal RV size and function. Mild mitral regurg. Borderline pulmonary hypertension est PASP 40 mmHg. Dilated IVC. est RA 15 mmHg. Compared with prior study on April 27, 2014 severe LV dysfunction, wall motion abnormalities are new Appreciate Cardiology/[employer] help Continue dual antiplatelet therapy on which patient should be for at least 1 year- Aspirin, ticagrelor Continue metoprolol, lisinopril, statin LifeVest arranged Also on spironolactone Needs follow up with Cardiology in 1 weeks Tobacco use Provided smoking cessation counseling Patient plans to quit smoking (3) Asthma exacerbation: Plan: Not in asthma exacerbation Ruled out (4) Hypothyroidism: Plan: patient reports history of, self stopped levothyroxine a few years ago TSH 3.9 Follow up as outpt (5) DVT prophylaxis: Plan: SCDs Admission and Anticipated Discharge Date Admission Date: April 09, 2021 Subjective Patient is seen and examined at bedside States feeling well today Denies chest pain, shortness of breath, dizziness, nausea, abdominal pain Offers no other complaints Eager to get discharged Review of Systems Review of Systems: All systems reviewed & are unremarkable except as noted in Subjective Physical Exam Physical Exam: Physical Exam: Vitals signs as noted above General Appearance:Moderately built and nourished, no apparent distress Head: normocephalic, Atraumatic Eyes: normal inspection, EOMI Neck: supple, Trachea midline Respiratory/Chest: Normal breath sounds, CTA, No accessory muscle use, +Life Vest Cardiovascular: S1, S2, No murmur Abdomen/GI:Soft, Non tender, Bowel sounds present Extremities/Musculoskeletal:normal inspection, no edema Neurologic/Psych:AAOX3, grossly no focal neurological deficits Skin: normal color, warm Results & Data Results & Data ([facility]) Vital Signs (Past 12 Hours) Vital Signs Temp Pulse Pulse Pulse Resp BP BP 04/12/21 11:53 36.8 C 76 16 113/73 04/12/21 08:12 36.6 C 74 16 116/86 04/12/21 08:00 75 04/12/21 04:59 36.9 C 75 16 111/68 Pulse Ox 04/12/21 11:53 97 04/12/21 08:12 95 04/12/21 08:00 04/12/21 04:59 98 Laboratory Results Short CBC 04/12/21 Range/Units 04:58 WBC 15.53 H (4.8-10.8) K/uL Hgb 14.0 (12.0-16.0) g/dL Hct 41.2 (37-47) % Plt Count 289 (130-400) K/uL BMP 04/12/21 04:58 Sodium 138 Potassium 3.9 Chloride 109 H Carbon Dioxide 24 BUN 18 Creatinine 0.61 Glucose 134 H Calcium 8.5 (1) Asthma exacerbation Asthma persistence: persistent Asthma severity: severe Qualified Code(s): J45.51 - Severe persistent asthma with (acute) exacerbation
--- NOTE | 2021-04-12 13:41 | Discharge Summary ---
Date of Service April 12, 2021 Admission HPI Per Admitting Provider 45-year-old female with PMH hypothyroidism, anxiety, asthma, tobacco abuse, and the problems listed below who presents the ED for evaluation of chest pain shortness of breath. Patient reports not being seen by a healthcare provider in about 5 years, self stopped all of her medications. Patient reports that yesterday, she developed difficulty breathing and chest discomfort. 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 She reports left-sided chest pain with radiation into the left shoulder with associated left arm numbness. She used her daughter's inhaler and reported brief relief of her symptoms. Symptoms returned today so she then presented to the ED for further evaluation. Patient denies lightheadedness, dizziness, diaphoresis, syncopal events. Denies abdominal pain, nausea, vomiting, diarrhea. No other recent illnesses, fevers, chills. Denies urinary symptoms. In the ED, patient was tachypneic and rhonchorous on exam. She is saturating well on room air. She was given 2 one hour-long nebulizer treatments, IV ketorolac, IV magnesium 1gm x 2, Solu-Medrol 125 mg and 40 mg, IV Zofran, IVF. EKG shows LBBB. Troponin checked and found to be 6.3 CXR negative for acute cardiopulmonary findings. CTA chest pending. Discussed with Dr. Ferrara, heart alert called given elevated trop and new LBBB. Principal Diagnosis NSTEMI Ischemic cardiomyopathy Acute respiratory failure with hypoxia--resolved Discharge Data Allergies Allergy/AdvReac Type Severity Reaction Status Date / Time hydrocodone AdvReac Intermediate GI SYMPTOMS Verified 04/09/21 16:17 oxycodone AdvReac Mild VOMITING Verified 04/09/21 16:17 tramadol AdvReac Mild VOMITING Verified 04/09/21 16:17 Consultations 04/09/21 18:06 ED Decision to Admit Stat 04/09/21 21:09 Consult Cardiac Rehabilitation Routine 04/09/21 21:12 Consult Clinical Services Specialist Routine 04/09/21 21:45 Consult Clinical Services Specialist Routine 04/10/21 07:09 Consult Cardiology Routine 04/10/21 07:10 Consult Cardiology Routine Procedures Performed Operation Date: 04/09/21 20:00 Actual Procedures p Cath, Left with Cors and Vent - Neo Ferrara MD s Cineradiography w/Routine Exam - Neo Ferrara MD s Aspiration/PCI w/MICHEL for Stemi - MD ismael Ernst IVUS Coronary Single Vessel - Neo Ferrara MD Ordered Studies 04/09/21 19:42 CL Cath Imgs for PACS use only Stat 04/09/21 21:23 CL IVUS Coronary Single Vessel Routine Diabetes Follow up Diabetes Follow-up Needed for Newly Diagnosed Diabetes Hospital Course (1) LBBB (left bundle branch block): (2) Elevated troponin: NSTEMI Ischemic cardiomyopathy Acute respiratory failure with hypoxia--resolved New LBBB S/P Cardiac Cath:Acute 100% mid LAD occlusion, Chronic multivessel CAD, Subtotal mid circumflex occlusion with right to left collaterals, 70% stenosis in superior branch of OM1, Small nondominant RCA with moderate diffuse disease, Elevated intracardiac filling pressure ---Successful PCI of mid LAD with 2 overlapping drug-eluting stents (2.5 x 30, 2.25 x 12 [place]; postdilated with 3.5 NC). --ECHO:normal LV size and wall thickness. LVEF 20 to 25%. Apical akinesis. Mild anterior/anteroseptal/septum/inferior akinesis. Hypokinetic basal septum/inferior segments and mid lateral/inferolateral segments. Normal RV size and function. Mild mitral regurg. Borderline pulmonary hypertension est PASP 40 mmHg. Dilated IVC. est RA 15 mmHg. Compared with prior study on April 27, 2014 severe LV dysfunction, wall motion abnormalities are new Appreciate Cardiology/Clinical Services Specialist help Continue dual antiplatelet therapy on which patient should be for at least 1 year- Aspirin, ticagrelor Continue metoprolol, lisinopril, statin LifeVest arranged Also on spironolactone Needs follow up with Cardiology in 1 weeks Tobacco use Provided smoking cessation counseling Patient plans to quit smoking (3) Asthma exacerbation: Not in asthma exacerbation Ruled out (4) Hypothyroidism: patient reports history of, self stopped levothyroxine a few years ago TSH 3.9 Follow up as outpt (5) DVT prophylaxis: SCDs Total Time Total Time Spent Total Time Spent (In Minutes): 45 minutes Discharge Plan Discharge Items Patient Disposition: Home - Self-Care Reason For Visit: ASTHMA EXACERBATION Discharge Diagnosis: NSTEMI Ischemic cardiomyopathy Acute respiratory failure with hypoxia--resolved Diabetes Mellitus Activity: Per Instructions section Exercise/Sports: Wait until after follow-up appointment Non-emergency contact: Primary Care Provider and Oncology Radiation Physician Call non-emergency contact if: you have any medication questions, your symptoms worsen, your pain is not controlled, your pain is concerning for you and you have a fever Follow-up/Referrals: Neo Ferrara MD [Physician] - Shae Ruiz MD [Primary Care Provider] - (Date & Time 04/19/2021 10:00 AM Provider Cecilia Jones MD Department Family Medicine [facility] ) Diet: Carb Consistent or DM2 and Heart Healthy Addtl Attending Provider Instructions: Follow-up with your primary care physician on 04/19/2021 10:00 AM Follow-up with your detention worker Dr. Shailesh Ferrara in 1 week You were noted to have HbA1c 6.5: Diabetes diagnosed as per criteria. Discussed with your primary care physician for further management and medication recommendations. Seek immediate medical attention if your symptoms reoccur or worsen Please take all medications as instructed on discharge list below. Please call if you have any questions or problems. You can reach a [facility] hospitalist on duty at [facility] 24 hours a day by calling [phone] Home Care: * Take your medications exactly as directed. Don't skip doses. * Remember that recovery after a heart attack takes time. Plan to rest for at lease 4-8 weeks while you recover. Then return to normal activity when your doctor says it's okay. * Ask your doctor about joining a heart rehabilitation program. * Tell your doctor if you are feeling depressed. Feelings of sadness are common after a heart attack, but it is important that you speak to someone if you are feeling overwhelmed by these feelings. * If you are having chest pain, call 911 for an ambulance. Do NOT drive yoursel f to the hospital. * Ask your family members to learn CPR. * Learn to take your own blood pressure and pulse. Keep a record of your results. Ask your doctor when you should seek emergency medical attention. He or she will tell you which blood pressure reading is dangerous. Lifestyle Changes: * Maintain a healthy weight. Get help to lose any extra pounds. * Cut back on salt. * Limit canned, dried, packaged, and fast foods. * Don't add salt to your food. * Season foods with herbs instead of salt when you cook. * Break the smoking habit. Enroll in a stop-smoking program to improve your chances of success. * Limit fatty foods. * Ask your doctor about having your lipid levels checked regularly. * Build up your activity according to your doctor's recommendation. * Ask your doctor when it's okay to resume sexual activity. * Tell your doctor about any erectile dysfunction (ED) medication you are taking. Some ED medications are not safe if you take certain heart medications. * Try to manage stress. Follow Up: It is important for you to keep your follow up appointments with your medical provider. Pending Studies at Discharge: No Stand-Alone Forms: My [facility], Smoking Cessation Medications and DC Order Prescriptions: New atorvastatin 40 mg Tablet 80 mg PO QAM Qty: 60 RF: 2 aspirin 81 mg Tablet,Delayed Release (Dr/Ec) 81 mg PO QAM Qty: 30 RF: 2 spironolactone 25 mg Tablet 25 mg PO QAM Qty: 30 RF: 2 lisinopril [Zestril] 5 mg Tablet 5 mg PO QAM Qty: 30 RF: 2 Brilinta 90 mg Tablet 90 mg PO BID Qty: 60 RF: 2 metoprolol succinate 50 mg tablet extended release 24 hr 50 mg PO DAILY Qty: 30 RF: 2 No Action No Known Home Medications RF: 0 Discharge Orders: Discharge Order (Routine); Ordered 04/12/21 Ordered By: Gabe Jhaveri Admission Data Admit Date/Time: 04/09/21 19:58 Attending Provider: Gabe Jhaveri Admit Provider: Neo Ferrara Primary Care Provider: Shae Ruiz Other Providers: Adolph Amador ; Ken Escobedo ; Baljeet Ureña ; Neo Ferrara ; Doc Caba Other Interventions: Discharge Summary Assessment (RN) Last Done: 04/12/21 13:44
== END 2021-04-12 14:26 | disposition home or self-care (01) | DRG 246 ==
LOC: ED 15:33 → CC 19:57 → 1E 19:58 → SUATTDRO 19:58